=== PATIENT | male | born 1950 | race Caucasian/White ===

== ENCOUNTER 2017-03-31 13:41 | Observation (INO) ==
[2017-03-31] MEDS ORDERED: Aspirin 81 MG TAB.CHEW PO STA (14:02)
--- NOTE | 2017-03-31 14:09 | Emergency Department Note ---
Disposition Clinical Impression: Abnormal stress test Chest pain Qualifiers: Chest pain type: unspecified Qualified Code(s): R07.9 - Chest pain, unspecified Disposition: Admitted As Inpatient Condition: Good Instructions: Chest Pain (ED) Referrals: NO,PCP [Non-Partnered Physician] - Forms: ED Satisfaction Letter Time of Disposition: 15:34 Chest Pain HPI - General Chief Complaint: ED Chest Pain Stated Complaint: Chest Pain Time Seen by Provider: 03/31/17 13:55 Source: patient, family Mode of arrival: ambulatory Limitations: no limitations Vital Signs Reviewed: Yes Nursing Notes Reviewed: Yes - History of Present Illness HPI Narrative: 66-year-old male history of CAD s/p 2 stents (most recent 2006), HTN, HLD, former smoker presents with chest pain as he was instructed from OSH to present here. Patient reports midsternal chest pressure and heaviness around 11 o' clock with reported shortness of breath. Denies any diaphoresis, lightheadedness, nausea or vomiting. He reportedly was coming home from a nuclear stress tests and informs me that it was reported abnormal. His flatbed company driver is Dr. Cedeno. Patient reports yesterday being admitted to [facility] for chest pain and a nuclear stress test was non-diagnostic and he had to complete it today over at [facility]. Patient has taken 2 baby aspirins today at 9 o'clock. He has not taken any nitro for it. While he was in the hospital but nitro did help with his pain. He denies any recent fever, illness , cough or abdominal pain. Denies any blood or black tarry stools. We are awaiting results of the stress test the faxed. Patient is hypertensive right now 183 systolic. He just took his losartan around 10 o'clock as he was NPO prior to his stress test. Pt complaint: chest pain Severity scale (1-10): 6 - Related Data Home Medications Medication Instructions Recorded Confirmed Aspirin Enteric Coated [Aspirin EC] 162 mg PO DAILY 03/31/17 03/31/17 Dexlansoprazole [Dexilant] 60 mg PO DAILY 03/31/17 03/31/17 Ezetimibe [Zetia] 10 mg PO DAILY 03/31/17 03/31/17 Folic Acid 2 mg PO DAILY 03/31/17 03/31/17 Hydroxychloroquine [Plaquenuil] 400 mg PO DAILY 03/31/17 03/31/17 Methotrexate [Otrexup] 20 mg PO SAMPSON 03/31/17 03/31/17 Metoprolol XL (24 HR) Succ [Toprol 50 mg PO DAILY 03/31/17 03/31/17 Xl] Nitroglycerin [Nitroglycerin] 0.4 mg PO Q5M PRN 03/31/17 03/31/17 Olmesartan Medoxomil [Olmesartan 40 mg PO DAILY 03/31/17 03/31/17 Medoxomil] Oxycodone HCl/Acetaminophen 1 each PO Q6H PRN 03/31/17 03/31/17 [Percocet 10-325 mg Tablet] Rosuvastatin Calcium [Rosuvastatin 20 mg PO HS 03/31/17 03/31/17 Calcium] Zolpidem [Ambien] 10 mg PO HS PRN 03/31/17 03/31/17 amLODIPine [Norvasc] 5 mg PO DAILY 03/31/17 03/31/17 Allergies Allergy/AdvReac Type Severity Reaction Status Date / Time Penicillins [PCN] Allergy Hives Verified 10/23/15 08:36 All systems ED: reviewed and negative except as stated. Constitutional: Denies: fever, chills ENT ED: Denies: ear pain Cardiovascular: Reports: chest pain. Denies: palpitations Respiratory: Reports: dyspnea. Denies: cough Gastrointestinal: Denies: abdominal pain, nausea, vomiting, diarrhea Genitourinary: Denies: urgency, dysuria Musculoskeletal: Denies: back pain, neck pain Integumentary: Denies: rash, abrasion Neurological: Denies: headache Chest Pain PMH - Past Medical History Medical history: Reports: arthritis, hyperlipidemia, hypertension - Social History Smoking Status: Former smoker Alcohol use: Reports: none Drug use: Reports: none Physical Exam - General Limitations: no limitations General appearance: alert, in no apparent distress - Head Head exam: atraumatic, normocephalic, normal inspection - Eye Eye exam: Present: normal appearance, PERRL, EOMI. Absent: scleral icterus - ENT ENT exam: normal exam, normal oropharynx, mucous membranes moist - Neck Neck exam: Present: normal inspection, full ROM, trachea midline - Chest Chest inspection: Present: normal inspection, symmetric chest wall rise. Absent : tenderness (Not reproducible) - Respiratory Respiratory exam: Present: normal lung sounds bilaterally. Absent: respiratory distress - Cardiovascular Cardiovascular exam: Present: regular rate, normal rhythm, normal heart sounds - Abdominal Exam Abdominal exam: Present: soft, Non-Tender, normal bowel sounds. Absent: tenderness, distention, guarding, rebound, rigidity - Extremities Exam Extremities exam: Present: normal inspection, full ROM, normal capillary refill. Absent: tenderness, pedal edema, calf tenderness - Back Exam Back exam: Present: normal inspection, full ROM. Absent: tenderness - Neurological Exam Neurological exam: Present: alert, oriented X3 - Psychiatric Psychiatric exam: Present: normal affect, normal mood - Skin Skin exam: Present: warm, dry, intact, normal color Course Course Narrative: 66-year-old male history of CAD ([place] x4 and stents x2) presents with chest pain and reportedly abnormal stress tests. Patient is initially hypertensive as he has just recently taken his antihypertensive medication. He otherwise appears in no acute distress. He is not diaphoretic. Heart's regular rate and rhythm. Chest is nontender on palpation. Are clear auscultation bilaterally. Exam is otherwise unremarkable. EKG does not show any acute ischemic changes. Chest pain workup initiated. We will give him 162 mg aspirin and a nitro trial. Awaiting his stress test results to be faxed. - Reevaluation(s) Reevaluation #1: Labs are unremarkable. Troponin 0. No acute changes on EKG. HEART score 4. The perfusion portion of stress test faxed and received, reveals images concerning for small region of mildly severe partially fixed partially reversible perfusion involving the distal anterior wall, apex and distal inferior wall concerning for mildly severe stress-induced ischemia. Pain diminished to 1 after 2 nitro and 162 mg of aspirin given. Impression is chest pain and abnormal stress test. Time: 15:27 - Consultations Consultation #1: Spoke to flatbed company driver Dr. Cedeno, recommend admission to hospital due to recurrent chest pain. Unfortunately the perfusion portion of the stress test is not available at this time. Await for results and determine further management. Time: 15:20 Consultation #2: Spoke with on-call hospitalist Dr. Lopes, ok to admit for chest pain and abnormal stress test. No further orders at this time Time: 16:25 Vital Signs Temperature 98.3 F 03/31/17 13:43 Pulse Rate 78 03/31/17 13:43 Respiratory Rate 18 03/31/17 13:43 Blood Pressure 164/110 03/31/17 13:43 O2 Sat by Pulse Oximetry 97 03/31/17 13:43 Temperature 98.3 F 03/31/17 13:43 Pulse Rate 57 03/31/17 15:46 Respiratory Rate 18 03/31/17 15:46 Blood Pressure 124/81 03/31/17 15:46 O2 Sat by Pulse Oximetry 96 03/31/17 15:46 Oxygen Delivery Oxygen Delivery Room Air Chest Pain - Medical Records Medical records reviewed: Yes I reviewed the patient's medical records. - Lab Data Lab results reviewed: Yes I reviewed the patient's lab results. Result diagrams: 03/31/17 14:37 03/31/17 14:37 Lab Results 03/31/17 03/31/17 03/31/17 Range/Units 14:37 14:37 14:37 WBC 6.1 (4.3-11.1) K/mcL RBC 4.59 (4.19-5.50) M/mcL Hgb 14.3 (12.9-16.9) g/dL Hct 41.3 (37.5-50.1) % MCV 90.0 (83.0-100.0) fL MCH 31.2 (28.0-33.3) pg MCHC 34.6 (31.6-35.5) g/dL RDW 13.0 (11.5-14.5) % Plt Count 170 (140-400) K/mcL MPV 10.2 (9.4-12.4) fL Immature Gran % 1.0 (0-4) % Seg Neutrophils % 68.5 % Lymphocytes % 22.1 % Monocytes % 6.4 % Eosinophils % 1.2 % Basophils % 0.8 % Neutrophils # 4.2 (1.6-8.9) K/mcL Lymphocytes # 1.3 (0.6-4.6) K/mcL Monocytes # 0.4 (0.0-1.3) K/mcL Eosinophils # 0.1 (0.0-0.6) K/mcL Basophils # 0.1 (0.0-0.2) K/mcL PT 11.2 (9.4-12.1) Seconds INR 1.0 APTT 29.6 (26.0-36.0) Seconds Sodium (136-145) mEq/L Potassium (3.5-4.5) mEq/L Chloride (98-109) mEq/L Carbon Dioxide (19-29) mEq/L BUN (8-26) mg/dL Creatinine (0.72-1.25) mg/dL Est GFR ( Amer) (> 60) Est GFR (Non-Af Amer) (> 60) BUN/Creatinine Ratio (6-26) Glucose (70-99) mg/dL Calculated Osmolality (280-300) Calcium (8.6-10.8) mg/dL Troponin I (0-0.03) ng/mL B-Natriuretic Peptide 33 (0-100) pg/mL 03/31/17 03/31/17 Range/Units 14:37 14:37 WBC (4.3-11.1) K/mcL RBC (4.19-5.50) M/mcL Hgb (12.9-16.9) g/dL Hct (37.5-50.1) % MCV (83.0-100.0) fL MCH (28.0-33.3) pg MCHC (31.6-35.5) g/dL RDW (11.5-14.5) % Plt Count (140-400) K/mcL MPV (9.4-12.4) fL Immature Gran % (0-4) % Seg Neutrophils % % Lymphocytes % % Monocytes % % Eosinophils % % Basophils % % Neutrophils # (1.6-8.9) K/mcL Lymphocytes # (0.6-4.6) K/mcL Monocytes # (0.0-1.3) K/mcL Eosinophils # (0.0-0.6) K/mcL Basophils # (0.0-0.2) K/mcL PT (9.4-12.1) Seconds INR APTT (26.0-36.0) Seconds Sodium 143 (136-145) mEq/L Potassium 3.9 (3.5-4.5) mEq/L Chloride 108 (98-109) mEq/L Carbon Dioxide 26 (19-29) mEq/L BUN 16 (8-26) mg/dL Creatinine 0.87 (0.72-1.25) mg/dL Est GFR ( Amer) > 60 (> 60) Est GFR (Non-Af Amer) > 60 (> 60) BUN/Creatinine Ratio 18 (6-26) Glucose 100 H (70-99) mg/dL Calculated Osmolality 297 (280-300) Calcium 9.6 (8.6-10.8) mg/dL Troponin I 0.00 (0-0.03) ng/mL B-Natriuretic Peptide (0-100) pg/mL - Radiology Data Radiology results reviewed: Yes I reviewed the patient's radiology results. Chest X-Ray 03/31/17 13:55 IMPRESSION: No acute cardiopulmonary disease. D/ / 03/31/2017 14:51:16 Luis Arroyo MD / Nia Avendaño Interpreting Provider: Luis Arroyo MD - EKG Data EKG attestation: Yes I reviewed and interpreted this EKG. EKG results narrative: EKG performed 1351 normal sinus rhythm with occasional PVC 68 bpm, good R-R wave progression, normal axis, there are no ST elevations or depressions, no T- wave inversions. Intervals are within normal limits HI interval 155 QRS 102 QT QTC 407 424. No acute ischemic changes. Heart Score - Score History: Moderately Suspicious EKG: Normal Age: 45-65 Risk Factors: Equal/Greater than 3 risk factor or history of atherosclerotic disease Troponin: Less than normal limit HEART Score Total: 4
--- NOTE | 2017-03-31 14:12 | Emergency Department Note ---
Disposition Clinical Impression: Chest pain, Abnormal stress test Disposition: Admitted As Inpatient Condition: Good General Adult HPI - General Chief complaint: ED Chest Pain Stated complaint: Chest Pain Time Seen by Provider: 03/31/17 13:55 Source: patient, family Mode of arrival: ambulatory Limitations: no limitations - History of Present Illness Pain Scale: 6 - Related Data Home Medications Medication Instructions Recorded Confirmed Aspirin Enteric Coated [Aspirin EC] 162 mg PO DAILY 03/31/17 03/31/17 Dexlansoprazole [Dexilant] 60 mg PO DAILY 03/31/17 03/31/17 Ezetimibe [Zetia] 10 mg PO DAILY 03/31/17 03/31/17 Folic Acid 2 mg PO DAILY 03/31/17 03/31/17 Hydroxychloroquine [Plaquenuil] 400 mg PO DAILY 03/31/17 03/31/17 Methotrexate [Otrexup] 20 mg PO SAMPSON 03/31/17 03/31/17 Metoprolol XL (24 HR) Succ [Toprol 50 mg PO DAILY 03/31/17 03/31/17 Xl] Nitroglycerin [Nitroglycerin] 0.4 mg PO Q5M PRN 03/31/17 03/31/17 Olmesartan Medoxomil [Olmesartan 40 mg PO DAILY 03/31/17 03/31/17 Medoxomil] Oxycodone HCl/Acetaminophen 1 each PO Q6H PRN 03/31/17 03/31/17 [Percocet 10-325 mg Tablet] Rosuvastatin Calcium [Rosuvastatin 20 mg PO HS 03/31/17 03/31/17 Calcium] Zolpidem [Ambien] 10 mg PO HS PRN 03/31/17 03/31/17 amLODIPine [Norvasc] 5 mg PO DAILY 03/31/17 03/31/17 Allergies Allergy/AdvReac Type Severity Reaction Status Date / Time Penicillins [PCN] Allergy Hives Verified 10/23/15 08:36 Constitutional: Denies: fever, chills ENT ED: Denies: ear pain Cardiovascular: Reports: chest pain. Denies: palpitations Respiratory: Reports: dyspnea. Denies: cough Gastrointestinal: Denies: abdominal pain, nausea, vomiting, diarrhea Genitourinary: Denies: urgency, dysuria Musculoskeletal: Denies: back pain, neck pain Integumentary: Denies: rash, abrasion Neurological: Denies: headache Past Medical History - Past Medical History Medical history: Reports: arthritis, hyperlipidemia, hypertension - Social History Smoking Status: Former smoker Smokeless Tobacco Status: No Alcohol use: Reports: none Drug use: Reports: none Physical Exam - General Limitations: no limitations General appearance: alert, in no apparent distress Course Vital Signs Temperature 98.3 F 03/31/17 13:43 Pulse Rate 78 03/31/17 13:43 Respiratory Rate 18 03/31/17 13:43 Blood Pressure 164/110 03/31/17 13:43 O2 Sat by Pulse Oximetry 97 03/31/17 13:43 Temperature 97.7 F 03/31/17 17:23 Pulse Rate 58 03/31/17 17:23 Respiratory Rate 16 03/31/17 17:23 Blood Pressure 159/98 03/31/17 17:23 O2 Sat by Pulse Oximetry 99 03/31/17 17:23 Oxygen Delivery Oxygen Delivery Room Air Medical Decision Making - Lab Data Result diagrams: 03/31/17 14:37 03/31/17 14:37 Lab Results 03/31/17 03/31/17 03/31/17 Range/Units 14:37 14:37 14:37 WBC 6.1 (4.3-11.1) K/mcL RBC 4.59 (4.19-5.50) M/mcL Hgb 14.3 (12.9-16.9) g/dL Hct 41.3 (37.5-50.1) % MCV 90.0 (83.0-100.0) fL MCH 31.2 (28.0-33.3) pg MCHC 34.6 (31.6-35.5) g/dL RDW 13.0 (11.5-14.5) % Plt Count 170 (140-400) K/mcL MPV 10.2 (9.4-12.4) fL Immature Gran % 1.0 (0-4) % Seg Neutrophils % 68.5 % Lymphocytes % 22.1 % Monocytes % 6.4 % Eosinophils % 1.2 % Basophils % 0.8 % Neutrophils # 4.2 (1.6-8.9) K/mcL Lymphocytes # 1.3 (0.6-4.6) K/mcL Monocytes # 0.4 (0.0-1.3) K/mcL Eosinophils # 0.1 (0.0-0.6) K/mcL Basophils # 0.1 (0.0-0.2) K/mcL PT 11.2 (9.4-12.1) Seconds INR 1.0 APTT 29.6 (26.0-36.0) Seconds Sodium (136-145) mEq/L Potassium (3.5-4.5) mEq/L Chloride (98-109) mEq/L Carbon Dioxide (19-29) mEq/L BUN (8-26) mg/dL Creatinine (0.72-1.25) mg/dL Est GFR ( Amer) (> 60) Est GFR (Non-Af Amer) (> 60) BUN/Creatinine Ratio (6-26) Glucose (70-99) mg/dL Calculated Osmolality (280-300) Calcium (8.6-10.8) mg/dL Troponin I (0-0.03) ng/mL B-Natriuretic Peptide 33 (0-100) pg/mL 03/31/17 03/31/17 Range/Units 14:37 14:37 WBC (4.3-11.1) K/mcL RBC (4.19-5.50) M/mcL Hgb (12.9-16.9) g/dL Hct (37.5-50.1) % MCV (83.0-100.0) fL MCH (28.0-33.3) pg MCHC (31.6-35.5) g/dL RDW (11.5-14.5) % Plt Count (140-400) K/mcL MPV (9.4-12.4) fL Immature Gran % (0-4) % Seg Neutrophils % % Lymphocytes % % Monocytes % % Eosinophils % % Basophils % % Neutrophils # (1.6-8.9) K/mcL Lymphocytes # (0.6-4.6) K/mcL Monocytes # (0.0-1.3) K/mcL Eosinophils # (0.0-0.6) K/mcL Basophils # (0.0-0.2) K/mcL PT (9.4-12.1) Seconds INR APTT (26.0-36.0) Seconds Sodium 143 (136-145) mEq/L Potassium 3.9 (3.5-4.5) mEq/L Chloride 108 (98-109) mEq/L Carbon Dioxide 26 (19-29) mEq/L BUN 16 (8-26) mg/dL Creatinine 0.87 (0.72-1.25) mg/dL Est GFR ( Amer) > 60 (> 60) Est GFR (Non-Af Amer) > 60 (> 60) BUN/Creatinine Ratio 18 (6-26) Glucose 100 H (70-99) mg/dL Calculated Osmolality 297 (280-300) Calcium 9.6 (8.6-10.8) mg/dL Troponin I 0.00 (0-0.03) ng/mL B-Natriuretic Peptide (0-100) pg/mL Attestation Statement - Attestation Attestation: I examined this patient and my medical decision-making was reviewed with the REFRACTORY BRICKLAYER/PA/Advanced Practice Nurse/Resident Physician. I agree with the documented findings, disposition and treatment plan as described except to the extent set forth below. Face to face time provided Patient instructed to present to the emergency department due to an abnormal stress test that was recently performed at an outside facility. He appears in no acute distress on exam. EKG reviewed by me 14:36: Stress test results. The transcribed report of the [facility] ECG does not indicate any acute abnormality (perfusion results unavailable). We will discuss with the on-call hospital product specialist
[2017-03-31] MEDS: Nitroglycerin 0.4 MG TAB.SUBL SL PRN ×2 (14:37→14:44)
[2017-03-31 14:46] LABS: Basophils # 0.1 K/mcL (0.0-0.2); Basophils % 0.8 %; Eosinophils # 0.1 K/mcL (0.0-0.6); Eosinophils % 1.2 %; Hematocrit 41.3 % (37.5-50.1); Hemoglobin 14.3 g/dL (12.9-16.9); Lymphocytes # 1.3 K/mcL (0.6-4.6); Lymphocytes % 22.1 %; Mean Corpuscular HGB Conc 34.6 g/dL (31.6-35.5); Mean Corpuscular Hemoglobin 31.2 pg (28.0-33.3); Mean Platelet Volume 10.2 fL (9.4-12.4); Monocytes # 0.4 K/mcL (0.0-1.3); Monocytes % 6.4 %; Neutrophils # 4.2 K/mcL (1.6-8.9); Platelet Count 170 K/mcL (140-400); Red Blood Count 4.59 M/mcL (4.19-5.50); Segmented Neutrophils % 68.5 %
[2017-03-31 14:53] LABS: Prothrombin Time 11.2 Seconds (9.4-12.1)
[2017-03-31 14:56] LABS: Activated Partial Thrombo Time 29.6 Seconds (26.0-36.0)
[2017-03-31 14:57] LABS: BUN/Creatinine Ratio 18 (6-26); Blood Urea Nitrogen 16 mg/dL (8-26); Calcium 9.6 mg/dL (8.6-10.8); Carbon Dioxide 26 mEq/L (19-29); Chloride 108 mEq/L (98-109); Glucose 100 mg/dL (70-99); Osmolality,Calculated 297 (280-300); Potassium 3.9 mEq/L (3.5-4.5); Sodium 143 mEq/L (136-145); eGFR For African Americans > 60 (> 60); eGFR For Non-African Americans > 60 (> 60)
[2017-03-31] MEDS ORDERED: Naloxone 0.4 MG/ML INJ IVP PRN (17:17)
[2017-03-31] MEDS ORDERED: Ondansetron 4 MG/2 ML VIAL IVP PRN (17:17)
[2017-03-31] MEDS ORDERED: Acetaminophen 325 MG TABLET PO PRN (17:17)
[2017-03-31] MEDS ORDERED: *HR* OxyCODONE/APAP 10/325 TABLET PO PRN (17:19)
[2017-03-31] MEDS ORDERED: Nitroglycerin 0.4 MG TAB.SUBL SL PRN (17:19)
--- NOTE | 2017-03-31 17:36 | Internal Med History&Physical ---
<Jhon Jeter - Last Filed: 03/31/17 17:56> Date of Encounter: 03/31/17 Time of Encounter: 17:34 Assessment and Plan (1) Abnormal stress test Current visit: Yes Status: Acute Patient presents from outside hospital with an abnormal stress test. Stress test reviewed showed small region of mildly severe partially fixed/partially reversible profusion involving the distal anterior wall, apex, and distal inferior wall. EF is 57%. EKG performed years unremarkable for ischemic changes, troponin performed here was negative. Patient is chest pain-free at this time. Cardiology has been consulted and patient will likely have LHC tomorrow. Patient been made nothing by mouth benign. (2) Coronary artery disease Current visit: Yes Status: Acute With abnormal stress test and plan for LHC as above. Continue aspirin, statin, beta lissette. Sublingual nitroglycerin when necessary for chest pain. Qualifiers: Coronary Disease-Associated Artery/Lesion type: [place] artery [place] vs. transplanted heart: [place] heart Associated angina: without angina Qualified Code(s): I25.10 - Atherosclerotic heart disease of [place] coronary artery without angina pectoris (3) Rheumatoid arthritis Current visit: Yes Status: Acute Stable. Continue Plaquenil, methotrexate, folic acid. Qualifiers: Rheumatoid arthritis location: unspecified site Rheumatoid factor presence : unspecified presence Qualified Code(s): M06.9 - Rheumatoid arthritis, unspecified (4) Chronic back pain Current visit: Yes Status: Acute Stable. Continue home Percocet. Qualifiers: Back pain location: low back pain Back pain laterality: midline Sciatica presence: unspecified whether sciatica present Qualified Code(s): M54.5 - Low back pain; G89.29 - Other chronic pain (5) Hyperlipidemia Current visit: Yes Status: Acute Will check lipid panel. Continue statin. Qualifiers: Hyperlipidemia type: pure hypercholesterolemia Qualified Code(s): E78.00 - Pure hypercholesterolemia, unspecified; E78.0 - Pure hypercholesterolemia (6) Hypertension Current visit: Yes Status: Acute Blood pressure mildly elevated. Continue home medication and continue to monitor. Qualifiers: Hypertension type: essential hypertension Qualified Code(s): I10 - Essential (primary) hypertension (7) GERD (gastroesophageal reflux disease) Current visit: Yes Status: Acute Continue PPI. Qualifiers: Esophagitis presence: esophagitis presence not specified Qualified Code(s) : K21.9 - Gastro-esophageal reflux disease without esophagitis (8) DVT prophylaxis Current visit: Yes Status: Acute Heparin 5000 units subcutaneous twice a day. Internal Medicine - H&P: HPI Chief complaint: Chest pain Admitted From: Emergency Dept Plans for Post Hospital Care: Home History of present illness: Mr. Morales is a 66 year old male with history of coronary artery disease, rheumatoid arthritis who presents with chest pain. Patient states that he was recently admitted at [facility] for chest pain. Patient underwent cardiac stress testing at that time and patient states that there is an error reporting so they asked him to come back this morning for repeat stress test which he did. Patient states that he was on his way home and was called and told that his stress test was abnormal and that they recommend he go to the emergency department. Patient then reported to our emergency department. He did state that he had some chest pain and her emergency department which was relieved with nitroglycerin. He reports his chest pain feels like a heaviness in the center of the chest. He states his chest pain does not radiate. He reports associated shortness of breath and occasional mild dizziness. He denies diaphoresis, nausea, vomiting, syncope, palpitations. Past Med Surg Social Fam HX - Past Medical History Medical history: arthritis, hyperlipidemia, hypertension - Past Surgical History Surgical History: angioplasty/stent, appendectomy, cholecystectomy - Social History Smoking Status: Former smoker Smokeless Tobacco Status: No Alcohol use: none Drug use: none - Family History Father Living Status: Hx Family Cardiac Disorders: Yes Hx Family Cancer: Yes Mother Hx Family Cardiac Disorders: Yes Internal Medicine - H&P: Meds Aspirin Enteric Coated [Aspirin EC] 162 mg PO DAILY 03/31/17 [History] Dexlansoprazole [Dexilant] 60 mg PO DAILY 03/31/17 [History] Ezetimibe [Zetia] 10 mg PO DAILY 03/31/17 [History] Folic Acid 2 mg PO DAILY 03/31/17 [History] Hydroxychloroquine [Plaquenuil] 400 mg PO DAILY 03/31/17 [History] Methotrexate [Otrexup] 20 mg PO SAMPSON 03/31/17 [History] Metoprolol XL (24 HR) Succ [Toprol Xl] 50 mg PO DAILY 03/31/17 [History] Nitroglycerin [Nitroglycerin] 0.4 mg PO Q5M PRN 03/31/17 [History] Olmesartan Medoxomil [Olmesartan Medoxomil] 40 mg PO DAILY 03/31/17 [History] Oxycodone HCl/Acetaminophen [Percocet 10-325 mg Tablet] 1 each PO Q6H PRN [History] Rosuvastatin Calcium [Rosuvastatin Calcium] 20 mg PO HS 03/31/17 [History] Zolpidem [Ambien] 10 mg PO HS PRN 03/31/17 [History] amLODIPine [Norvasc] 5 mg PO DAILY 03/31/17 [History] Allergies Penicillins [PCN] Allergy (Verified 10/23/15 08:36) Hives All Systems PM: A 10-system review of systems was performed and is negative for pertinent findings except as documented above in the HPI. - Constitutional Constitutional: no chills, no fever(s) - EENT Eyes: no change in vision Nose, mouth and throat: no sinus pain, no sinus pressure - Cardiovascular Cardiovascular ROS IM: chest pain, dyspnea, lightheadedness, no diaphoresis, no edema, no palpitations, no syncope - Respiratory Respiratory: dyspnea, no cough, no hemoptysis, no dyspnea on exertion, no wheezing, no chest congestion, no excessive phlegm production, no change in phlegm color - Gastrointestinal Gastrointestinal: no abdominal pain, no diarrhea, no nausea, no vomiting - Genitourinary Genitourinary ROS male: no dysuria, no urinary frequency, no urinary hesitancy - Musculoskeletal Musculoskeletal ROS IM: back pain (chronic), no numbness, no tingling - Integumentary Integumentary IM: no erythema, no new lesions, no rash - Neurological Neurological ROS: dizziness, no numbness, no tingling - Psychiatric Psychiatric: no anxiety, no depression - Hematologic/Lymphatic Hematologic/Lymphatic: no easy bleeding, no easy bruising - Constitutional Vitals: Temp Pulse Resp BP Pulse Ox 98.3 F 57 16 155/98 96 03/31/17 13:43 03/31/17 15:46 03/31/17 16:51 03/31/17 16:51 03/31/17 15:46 General appearance: Present: A&O X 3, pleasant, no acute distress - Head Head exam: Present: atraumatic, normal inspection, normocephalic - Eye Eye exam: Present: EOMI, PERRL - ENT ENT exam: Present: mucous membranes moist - Respiratory Respiratory exam: Present: CTAB. Absent: rales, rhonchi, wheezes - Cardiovascular Cardiovascular exam: Present: RRR. Absent: gallop, irregular rhythm, rubs, systolic murmur, tachycardia - GI/Abdominal GI/Abdominal exam: Present: normal bowel sounds, soft. Absent: distended, tenderness - Extremities Exam Extremities exam: Present: warm. Absent: cyanotic, pedal edema, tenderness - Neurological Exam Neurological exam: Present: alert, CN II-XII intact, oriented X3, no focal deficits - Psychiatric Psychiatric exam: Present: normal affect, normal mood - Skin Skin exam: Present: dry, intact, warm Internal Med - H&P Results - Labs CBC & Chem 7: 03/31/17 14:37 03/31/17 14:37 <Luis Fernando Monroy P - Last Filed: 03/31/17 19:34> Date of Encounter: 03/31/17 Internal Medicine - H&P: HPI History of present illness: Mr. Morales is a 66 year old male All Systems PM: A 10-system review of systems was performed and is negative for pertinent findings except as documented above in the HPI. - Constitutional Vitals: Temp Pulse Resp BP Pulse Ox 97.7 F 58 16 159/98 99 03/31/17 17:23 03/31/17 17:23 03/31/17 17:23 03/31/17 17:23 03/31/17 17:23 Internal Med - H&P Results - Labs CBC & Chem 7: 03/31/17 14:37 03/31/17 14:37 - Attending Attestation I examined this patient and my medical decision-making was reviewed with the UNIT AIDE/PA/Advanced Practice Nurse/Resident Physician. I agree with the documented findings, disposition and treatment plan as described except to the extent set forth below. will follow cardiology recommendations
[2017-03-31] MEDS: *HR* Heparin 5,000 UNIT/ML VIAL SQ SCH (17:59)
[2017-04-01] MEDS: *HR* Heparin 5,000 UNIT/ML VIAL SQ SCH ×2 (05:35→17:24)
[2017-04-01 06:29] LABS: Basophils % 0.7 %; Eosinophils # 0.1 K/mcL (0.0-0.6); Eosinophils % 1.1 %; Hematocrit 39.4 % (37.5-50.1); Hemoglobin 13.6 g/dL (12.9-16.9); Immature Granulocytes % 0.8 % (0-4); Lymphocytes # 1.5 K/mcL (0.6-4.6); Lymphocytes % 23.7 %; Mean Corpuscular HGB Conc 34.5 g/dL (31.6-35.5); Mean Corpuscular Hemoglobin 31.1 pg (28.0-33.3); Mean Corpuscular Volume 90.2 fL (83.0-100.0); Mean Platelet Volume 10.5 fL (9.4-12.4); Monocytes # 0.5 K/mcL (0.0-1.3); Monocytes % 7.5 %; Neutrophils # 4.1 K/mcL (1.6-8.9); Platelet Count 160 K/mcL (140-400); Red Blood Count 4.37 M/mcL (4.19-5.50); Segmented Neutrophils % 66.2 %
[2017-04-01 06:32] LABS: BUN/Creatinine Ratio 14 (6-26); Blood Urea Nitrogen 13 mg/dL (8-26); Calcium 8.8 mg/dL (8.6-10.8); Carbon Dioxide 26 mEq/L (19-29); Chloride 109 mEq/L (98-109); Cholesterol 128 mg/dL (< 200); Glucose 107 mg/dL (70-99); HDL Cholesterol 42 mg/dL (40-59); LDL Cholesterol,Calculated 59 mg/dL (0-99); Magnesium 2.1 mg/dL (1.6-2.6); Osmolality,Calculated 293 (280-300); Potassium 4.2 mEq/L (3.5-4.5); Sodium 141 mEq/L (136-145); Triglycerides 134 mg/dL (< 150); eGFR For African Americans > 60 (> 60); eGFR For Non-African Americans > 60 (> 60)
[2017-04-01] MEDS: Valsartan 160 MG TABLET PO SCH (08:21)
[2017-04-01] MEDS: Folic Acid 1 MG TABLET PO SCH (08:22)
[2017-04-01] MEDS: amLODIPine 5 MG TABLET PO SCH (08:22)
[2017-04-01] MEDS: Metoprolol XL (24 HR) Succ 50 MG TAB.ER.24H PO SCH (08:22)
[2017-04-01] MEDS ORDERED: Aspirin Enteric Coated 81 MG Tablet PO SCH (09:00)
--- NOTE | 2017-04-01 09:17 | Cardiology Consult Note ---
Date of Encounter: 04/01/17 Time of Encounter: 08:45 Assessment and Plan (1) Chest pain Current Visit: Yes Status: Acute Presents with typical chest pain symptoms--states similar to prior [place]. Troponin negative, ECG without ischemic ECG changes. Chest pain free upon exam. Recent abnormal stress test at outside Hospital--mildly severe perfusion defect involving the distal anterior wall, apex, and distal inferior wall, gated EF=57% . Hx of prior PCI in 2006. Recommend [facility] with possible PCI; alternatives, risks, and benefits discussed, he is agreeable to proceed. Continue asa, statin, and betablocker. Further recommendations to follow. Qualifiers: Chest pain type: chest pain due to myocardial ischemia Ischemic chest pain type: stable angina pectoris Qualified Code(s): I20.8 - Other forms of angina pectoris (2) Abnormal stress test Current Visit: Yes Status: Acute Plan as stated above. Discussion w patient/family: The assessment and plan as outlined above was discussed with the patient and/or family members who expressed understanding and agreement. All questions were answered. Thank you for involving us in the care of your patient. Please call with any questions. The patient will be discussed and reviewed with Dr. Cedeno; changes to be made accordingly. History of Present Illness Consult date: 03/31/17 Requesting physician: Mert Payton Consult reason: Abnormal stress test Chief complaint: Chest pain History of present illness: Mr. Morales is a 66 year old male with PMHx significant for CAD s/p PCI (2006), HTN , HLD, RA, and smokeless tobacco use who initially presented to [facility] with 1 week history of worsening mid-sternal, non-radiating, chest pain. He reports the pain awoke him from sleep on Thursday morning which prompted ED evaluation. Associated symptoms include shortness of breath; symptoms typically last for a few minutes and then resolve. Non-exercise stress test completed at [place] was found to be abnormal--at that point the patient was discharged but then contacted at home and was instructed to be evaluated at [facility] ED. Prior CV testing: Regadenoson nuclear 10/23/15: perfusion imaging negative for ischemia or infarct, gated EF=67%, normal hemodynamic response Non exercise nuclear 03/30/17 ([place]): imaging concerning for a small region of mildly severe partially fixed/partially reversible perfusion involving the distal anterior wall, apex, and distal inferior wall concerning for mildly severe stress-induced ischemia, gated LVEF=57% Past Med Surg Social Fam HX - Past Medical History Attestation: Yes The following information was validated with the patient. Source: patient, old records reviewed, obtained from family Medical history: arthritis, hyperlipidemia, hypertension, RA - Past Surgical History Surgical History: angioplasty/stent, appendectomy, cholecystectomy - Social History Smoking Status: Former smoker Packs per day: 2 Smokeless Tobacco Status: Yes (1 pack chewing tobacco) Alcohol use: none Drug use: none - Family History Father Living Status: Hx Family Cardiac Disorders: Yes Hx Family Cancer: Yes Mother Living Status: Age at : 62 Cause of : [place] Hx Family Cardiac Disorders: Yes Hx Family Respiratory Disorders: No Hx Family Cancer: No Hx Family Endocrine Disorder: Yes Hx Family Medical Disorders: Yes Medications and Allergies Aspirin Enteric Coated [Aspirin EC] 162 mg PO DAILY 03/31/17 [History] Dexlansoprazole [Dexilant] 60 mg PO DAILY 03/31/17 [History] Ezetimibe [Zetia] 10 mg PO DAILY 03/31/17 [History] Folic Acid 2 mg PO DAILY 03/31/17 [History] Hydroxychloroquine [Plaquenuil] 400 mg PO DAILY 03/31/17 [History] Methotrexate [Otrexup] 20 mg PO SAMPSON 03/31/17 [History] Metoprolol XL (24 HR) Succ [Toprol Xl] 50 mg PO DAILY 03/31/17 [History] Nitroglycerin [Nitroglycerin] 0.4 mg PO Q5M PRN 03/31/17 [History] Olmesartan Medoxomil [Olmesartan Medoxomil] 40 mg PO DAILY 03/31/17 [History] Oxycodone HCl/Acetaminophen [Percocet 10-325 mg Tablet] 1 each PO Q6H PRN [History] Rosuvastatin Calcium [Rosuvastatin Calcium] 20 mg PO HS 03/31/17 [History] Zolpidem [Ambien] 10 mg PO HS PRN 03/31/17 [History] amLODIPine [Norvasc] 5 mg PO DAILY 03/31/17 [History] Allergies Penicillins [PCN] Allergy (Verified 10/23/15 08:36) Hives All Systems Review: A 10-system review of systems was performed and is negative for pertinent findings except as documented above in the HPI. - Cardiovascular Cardiovascular: as per HPI Physical Examination Vital Signs, Last 4 Hours Pulse Resp BP Pulse Ox 04/01/17 07:00 57 18 127/84 96 General: Conversant, No Apparent Distress HEENT: Atraumatic, Normocephaly, Mucus Membranes Moist Cardiac: Reg Rate and Rhythm, Normal S1 and S2 Lungs: Normal Breath Sounds, No Wheeze, Rales, Rhonchi Neuro: Alert and responsive Abdomen: Soft, Non-Tender Skin: No rashes noted on visualized skin Musculoskeletal: No Chest Wall Tenderness Extremities: No Edema, Normal Pulses Results 04/01/17 05:54 04/01/17 05:54 Lab Results 04/01/17 04/01/17 05:54 05:54 WBC 6.1 Hgb 13.6 Hct 39.4 Plt Count 160 Sodium 141 Potassium 4.2 Chloride 109 Carbon Dioxide 26 BUN 13 Creatinine 0.94 Glucose 107 H Calcium 8.8 Magnesium 2.1 - Imaging and Cardiology Stress Test: report reviewed Other Results: 12 hour tele: avg HR=58 SR with PACs. Artifact present. - EKG Interpretation EKG results cardiology: personally reviewed Consult Discharge Plan - Plan Referrals: Sebastian Stockton MD [Primary Care Provider] - 04/09/17 2:15 pm
--- NOTE | 2017-04-01 11:17 | Pre-Sedation Evaluation ---
Pre-sedation evaluation - Pre-sedation checklist Date of procedure: 04/01/17 Procedure: Left Heart Catheterization Recent Vitals: Last Vital Signs Temp 97.9 F 04/01/17 04:37 Pulse 57 04/01/17 07:00 Resp 18 04/01/17 07:00 BP 127/84 04/01/17 07:00 Pulse Ox 96 04/01/17 07:00 H&P (including ROS) documented in medical record: Yes Previous reaction to sedatives/anesthetics: No Dietary Status: NPO after Midnight Dentition: No loose teeth or bridges ASA Classification *see protocol: CLASS II-Mild systemic disease Plan of Care: Pt appropriate candidate for procedure/moderate/conscious sedation , Risks/benefits of procedure/sedation discussed w/ patient/family
[2017-04-01] MEDS ORDERED: Nitroglycerin 1,000 MCG/10 ML VIAL IV ONE ×2 (12:46→14:16)
[2017-04-01] MEDS ORDERED: Heparin 1,000 UNITS/500 mL NS 500 ML ONE (12:46)
[2017-04-01] MEDS ORDERED: 0.9 % Sodium Chloride 1,000 ML ONE ×2 (12:46→13:33)
[2017-04-01] MEDS ORDERED: Verapamil 5 MG/2 ML VIAL ONE (12:46)
[2017-04-01] MEDS ORDERED: *HR* Heparin 10,000 UNIT/10 ML VIAL ONE (12:46)
[2017-04-01] MEDS ORDERED: *HR* FentaNYL (PF) 100 MCG/2 ML VIAL ONE (13:32)
[2017-04-01] MEDS ORDERED: *HR* Midazolam HCl 2 MG/2 ML VIAL ONE ×2 (13:32→13:45)
--- NOTE | 2017-04-01 14:31 | Invasive Diagnostic Lab Proc ---
Name: Kiran Morales Date of Study: 04/01/2017 Date: 1950 Ht: 68.1in Medical Record#: [id number] Age: 66 Wt: 242.51lb Gender: Male BSA: 2.22 Order #: [id number] BMI: 36.75 Physicians Procedure Physician: Carlos Alberto Gutierrez MD, [facility] Referring MD: Referring MD: Staff Name Position Time In Nohemy Cabrera RT (R) Monitor 01:31 PM Cuca Morin RN Supervisor Finishing 01:31 PM Junaid Weiss RT (R) Scrub 01:31 PM Indications Indication Abnormal Test - Stress Procedures Performed Procedure L HRT ARTERY/VENTRICLE ANGIO PRQ CARDIAC ANGIOPLAST 1 ART Pre-Procedure Checklist Informed consent is complete signed and on chart. H\\T\\P is on chart. ID band is on and ID verified with patient. Patient NPO for procedure The procedure was described for the patient and questions were answered. Blood Pressure: 127/84 ECG is on chart. Rhythm: NSR Plan of Care Patient will tolerate the procedure without complications. Adequate level of comfort will be maintained. Hemodynamics will remain stable Patient will recover from procedure without complications. Respiratory function will be maintained. Cardiac rhythm will remain stable. Patient temperature will be maintained. Patient and/or family have verbalized understanding of the procedure. Patient Education Chief Complaint/Reason for Test: Cardiac Cath Developmental Category: Geriatric (65+ years) Developmentally Appropriate for Age: Yes Learning Barriers: None Education Needs: Procedure Education Method: Verbal Information Taught: Cardiac Cath Educational Evaluation: Able to repeat information Intravenous Access Time IV Size Location DC'd Fluid/Drip Rate Units RN 09:56 AM 20g 1 10/08" Patent On Arrival Lt Antecubital 0.9NaCl 25 ml/hr Allergies Penicillins Vital Signs Time BP (mmHg) HR (bpm) O2 Sat. RR (bpm) LOC 09:58 AM 127 / 84 57 96 % 18 5 = Fully awake and oriented or at pre-proc level 01:32 PM / % 5 = Fully awake and oriented or at pre-proc level 01:33 PM 193 / 106 57 99 % 13 01:34 PM 111 / 96 86 99 % 9 01:38 PM 148 / 101 75 95 % 01:41 PM 138 / 93 54 100 % 26 01:43 PM 145 / 95 60 98 % 15 01:46 PM 133 / 81 68 95 % 18 01:49 PM 131 / 81 66 93 % 14 01:52 PM 133 / 79 66 96 % 22 01:56 PM 144 / 90 62 95 % 19 01:59 PM 140 / 75 63 97 % 16 02:02 PM 146 / 80 65 97 % 18 02:04 PM 147 / 81 65 98 % 19 02:07 PM 143 / 85 58 98 % 19 02:11 PM 149 / 73 63 98 % 20 02:14 PM 133 / 76 65 97 % 20 02:17 PM 139 / 77 70 96 % 24 02:20 PM 143 / 79 33 97 % 18 Procedural Medications Time Medication Dose Units Method Given By 01:35 PM Versed 2 mg Intravenous Cuca Morin RN 01:35 PM Fentanyl 50 mcg Intravenous Cuca Morin RN 01:41 PM Lidocaine 2% 0.5 ml Subcutaneous Carlos Alberto Gutierrez MD, FAC 01:44 PM Heparin 4000 units Nitroglycerin 200 mcg Verapamil 2.5 mg Intraarterial Carlos Alberto Gutierrez MD, FAC 01:44 PM Versed 1 mg Intravenous Cuca Morin RN 01:44 PM Fentanyl 25 mcg Intravenous Cuca Morin RN 01:58 PM Nitroglycerin 200 mcg Intracoronary Carlos Alberto Gutierrez MD 01:58 PM Heparin 1000 units Intravenous Cuca Morin RN 02:10 PM Nitroglycerin 200 mcg Intracoronary Carlos Alberto Gutierrez MD 02:15 PM Nitroglycerin 200 mcg Intracoronary Carlos Alberto Gutierrez MD 02:19 PM Plavix 600 mg Orally Cuca Morin RN ASA Classification: CLASS II- Mild systemic disease (i.e. well-controlled diabetes, hypertension, asthma, cigarette smoking) Deirdre Score Preprocedure Postprocedure Activity 2- Moves 4 extremities sustained head lift Activity 2- Moves 4 extremities sustained head lift Circulation 2- SBP +/= 20 points of pre-anesthetic level Circulation 2- SBP +/= 20 points of pre-anesthetic level Consciousness 2- Awake and alert oriented x 3 Consciousness 2- Awake and alert oriented x 3 O2 Saturation 2- Able to maintain O2 satruation of 92% on room air O2 Saturation 2- Able to maintain O2 satruation of 92% on room air Respiratory 2- Able to deep breathe and cough well Respiratory 2- Able to deep breathe and cough well Total Score 10 Total Score 10 Contrast Agent: Isovue Diagnostic Contrast: 119 ml Total Contrast: 119 ml Fluoro Dose: 1066 mGy Activated Clotting Time Time Seconds to Clot 01:58 PM 295 Procedure Log Time Note Enter By 01:31 PM CathStat 01:31 PM Vitals capture started with the following parameters, Patient=Adult, Interval=3 min, Initial Mbqxgxvn=874 mmHg, Deflation Rate=5 mmHg, Cuff placed on Right Arm 01:31 PM Pt arrived to fence laborer 2 at 13:31 [facility] :31 PM Nohemy Cabrera RT (R) Position: [facility] Cuca Morin RN Position: Supervisor Finishing Time in: :31 [facility] :31 PM Junaid Weiss RT (R) Position: Scrub Time in: 13:31 [facility] :32 PM Patient charges- Angio tray pack, Navilyst 3mm J, Pulse Oximetry and ACIST tubing and transducer [facility] PM Case Delayed No [facility]32 PM Hair removed from procedure site in holding area using clippers. Right wrist prepped with Chloraprep by Cuca Morin RN, safety strap applied then patient was draped. Skin intact. [facility] :32 PM Hair removed from procedure site in holding area using clippers. Right groin prepped with Chloraprep by Cuca Morin RN, safety strap applied then patient was draped. Skin intact. [facility] :32 PM Physican paged/called 13:32. [facility] :32 PM Physician arrived 13:32 [facility] :32 PM ASA Class CLASS II- Mild systemic disease (i.e. well-controlled diabetes, hypertension, asthma, cigarette smoking) [facility] :32 PM Meet and greet completed [facility] :32 PM Sign in performed according to hospital policy. [facility] :32 PM Procedure start 13:[facility] Time: 13:32 Patient comfortable and pain free: Yes [facility] 32 PM Time: 13:32LOC: 5 = Fully awake and oriented or at pre-proc level [facility] :33 PM HR=57 bpm, PWSK=216/106 mmhg, SpO2=99.0 %, Resp=13 B/min, Comment=NSR :33 PM Recorded ECG: HR=57 Condition=Condition 1 01:34 PM HR=86 bpm, HIXE=927/96 mmhg, SpO2=99.0 %, Resp=9 B/min, Comment=NSR 01:35 PM Time: 13:35 Versed 2 mg Intravenous Given by Cuca Morin RN [email or web address] 01:36 PM Time: 13:35 Fentanyl 50 mcg Intravenous Given by Cuca Morin RN, [email or web address] 01:36 PM Pressure channel 1 zeroed. 01:38 PM HR=75 bpm, ODLI=058/101 mmhg, SpO2=95.0 %, Comment=NSR 01:41 PM Time out performed according to hospital policy [email or web address] 01:41 PM Time: 13:41 0.5 ml Lidocaine 2% to right radial Subcutaneous Given by [facility], [email or web address] 01:[facility] PM HR=54 bpm, OTNX=671/93 mmhg, CmF7=765.0 %, Resp=26 B/min, Comment=NSR 01:43 PM Access obtained by percutaneous puncture. 6Fr 10cm Terumo Glidesheath sheath placed in right Radial artery. [id number] [email or web address] 01:43 PM HR=60 bpm, NQHM=209/95 mmhg, SpO2=98.0 %, Resp=15 B/min, Comment=NSR 01:44 PM Time: 13:44 Patient given 4,000 units Heparin, 200 mcg Nitroglycerin, and 2.5 mg Verapamil Intraarterial by Carlos Alberto Gutierrez MD, [facility] [email or web address] 01:44 PM Time: 13:44 Versed 1 mg Intravenous Given by Cuca Morin RN [email or web address] 01:44 PM Time: 13:44 Fentanyl 25 mcg Intravenous Given by Cuca Morin RN [email or web address] 01:44 PM 0.035 260cm Navilyst 3mmJ wire [id number] [email or web address] 01:44 PM 5Fr TIG catheter inserted over the wire [facility] [email or web address] 01:45 PM Pressure channel 1 zeroed. 01:46 PM RCA angiography performed in multiple views. [email or web address] 01:46 PM Recorded Pressure: Ao, HR=68, Condition=Condition 1 (Aorta) Ao 112/88/100 01:46 PM Coronary Dominance: right [email or web address] 01:46 PM HR=68 bpm, RIJU=726/81 mmhg, SpO2=95.0 %, Resp=18 B/min, Comment=NSR 01:47 PM LCA angiography performed in multiple views. [email or web address] 01:47 PM Recorded Pressure: Ao, HR=66, Condition=Condition 1 (Aorta) Ao 117/88/103 01:49 PM HR=66 bpm, TOPJ=026/81 mmhg, SpO2=93.0 %, Resp=14 B/min, Comment=NSR 01:50 PM Lesion found in Proximal LAD. Pre Stenosis: 30 Pre KELSIE Flow: [email or web address] 01:50 PM Lesion found in Mid LAD. Pre Stenosis: 30 Pre KELSIE Flow: [email or web address] 01:50 PM Lesion found in Proximal Circumflex. Pre Stenosis: 50 Pre KELSIE Flow: [email or web address] 01:51 PM Pressure channel 1 zero failed. 01:51 PM Pressure channel 1 zero failed. 01:51 PM Recorded Pressure: LV, HR=70, Condition=Condition 1 (Left Ventricle) LV 123/12/12 01:52 PM Catheter selectively placed in left ventricle [email or web address] 01:52 PM Bolus angiogram of left Ventricle complete: 10 ml/sec for a total of 20 mls [email or web address] 01:52 PM Recorded Pressure: LV, Ao, HR=67, Condition=Condition 1 (Left Ventricle) LV 132/12/22, (Aorta) Ao ?/?/? 01:52 PM HR=66 bpm, WRQX=636/79 mmhg, SpO2=96.0 %, Resp=22 B/min, Comment=NSR 01:53 PM Catheter removed [email or web address] 01:53 PM [ Select Procedure ] 01:53 PM 6Fr IM Runway guide catheter was used to cannulate the PCI vessel successfully. reused? No [email or web address] 01:53 PM .014 [place] 190cm guide wire across target lesion- successful. reused? No [email or web address] 01:53 PM Inflation device was opened. [email or web address] 01:56 PM HR=62 bpm, YCBR=634/90 mmhg, SpO2=95.0 %, Resp=19 B/min, Comment=NSR 01:56 PM .014 [place] 180cm guide wire across target lesion- successful. reused? No [email or web address] 01:58 PM 2.5 mm x 12 mm Emerge Monorail balloon across target lesion- successful. reused? No [email or web address] 01:58 PM Time: 13:58 Nitroglycerin 200 mcg Intracoronary Given by Carlos Alberto Gutierrez MD [email or web address] 01:58 PM At 13:58 the ACT was 295 seconds. [email or web address] 01:59 PM HR=63 bpm, WRQZ=526/75 mmhg, SpO2=97.0 %, Resp=16 B/min, Comment=NSR 01:59 PM Time: 13:58 Heparin 1000 units Intravenous Given by Cuca Morin RN [email or web address] 02:02 PM Balloon inflated @ 14 gideon for 24 seconds [email or web address] 02:02 PM HR=65 bpm, XSUV=843/80 mmhg, SpO2=97.0 %, Resp=18 B/min, Comment=NSR 02:02 PM Balloon inflated @ 12 gideon for 16 seconds [email or web address] 02:04 PM HR=65 bpm, ZQCC=018/81 mmhg, SpO2=98.0 %, Resp=19 B/min, Comment=NSR 02:05 PM Cutting balloon catheter removed intact. [email or web address] 02:06 PM 2.5 mm x 10 mm Flextome Monorail cutting balloon across target lesion- successful. reused? No [email or web address] 02:07 PM Cutting balloon catheter removed intact. [email or web address] 02:07 PM 2.5 mm x 12mm NC Trek Rx balloon across target lesion- successful. reused? No [email or web address] 02:07 PM HR=58 bpm, AOVI=107/85 mmhg, SpO2=98.0 %, Resp=19 B/min, Comment=NSR 02:09 PM Balloon inflated @ 16 gideon for 32 seconds [email or web address] 02:10 PM Time: 14:10 Nitroglycerin 200 mcg Intracoronary Given by Carlos Alberto Gutierrez MD [email or web address] 02:11 PM HR=63 bpm, SITL=557/73 mmhg, SpO2=98.0 %, Resp=20 B/min, Comment=NSR 02:12 PM Balloon catheter removed intact. [email or web address] 02:13 PM Cutting balloon re-inserted. [email or web address] 02:14 PM HR=65 bpm, EHDZ=865/76 mmhg, SpO2=97.0 %, Resp=20 B/min, Comment=NSR 02:14 PM Balloon inflated @ 12 gideon for 28 seconds [email or web address] 02:15 PM Balloon inflated @ 12 gideon for 24 seconds [email or web address] 02:15 PM Time: 14:15 Nitroglycerin 200 mcg Intracoronary Given by Carlos Alberto Gutierrez MD [email or web address] 02:16 PM Balloon catheter removed intact. [email or web address] 02:17 PM HR=70 bpm, LSTH=387/77 mmhg, SpO2=96.0 %, Resp=24 B/min, Comment=NSR 02:17 PM Guide wires removed intact. [email or web address] 02:18 PM Guide catheter removed intact. [email or web address] 02:19 PM Time: 14:19 Plavix 600 mg Orally Given by Cuca Morin RN [email or web address] 02:20 PM HR=33 bpm, USWZ=727/79 mmhg, SpO2=97.0 %, Resp=18 B/min, Comment=NSR 02:21 PM Procedure completed at 14:21 [email or web address] 02:21 PM Sign out completed: Radiation Dose 1066.11 mGy Fluoro Time: 8.5 Isovue 370 - 200ml contrast 119 ml given by Carlos Alberto Gutierrez MD, [facility]. Complications: NoneCardiac Rehab Consult needed: YesConfirmed administered medications: Yes [email or web address] 02:21 PM Isovue 370 - 200ml,1 Bottle(s) used. [email or web address] 02:21 PM Arterial sheath pulled, Vasc Band closure device used and was Successful S/N. [email or web address] 02:21 PM 11 ml air in Vasc Band. [email or web address] 02:21 PM Post ECG NSR [email or web address] 02:22 PM Post Blood Pressure 143/79 [email or web address] 02:22 PM Information taught Cardiac Cath, PCI, and Vasc Band [email or web address] 02:22 PM Education needs Procedure, Plan of Care, and Disease Process [email or web address] 02:22 PM Learning barriers :None [email or web address] 02:22 PM Education Methods Verbal [email or web address] 02:22 PM Education evaluation Able to repeat information [email or web address] 02:22 PM Site status No bleeding/hematoma - Rt Wrist as reported by Junaid Weiss RT (R) at 14:22 [email or web address] 02:22 PM Delay to floor No [email or web address] 02:22 PM Family placed in consult room. [email or web address] 02:22 PM Complications: None [email or web address] 02:22 PM Fluoro Time: 8.5 [email or web address] 02:23 PM Isovue 370 - 200ml contrast 119 ml given by Carlos Alberto Gutierrez MD, [facility]. [email or web address] 02:23 PM Radiation Dose 1066.11 mGy [email or web address] 02:26 PM Report given to Ronnie WANG Pt taken to E Room #24. 14:26 [email or web address] 02:26 PM Patient out of room: 14:26 [email or web address] Complications Complication None None Hemodynamics Pressures Site Systolic/A Wave Diastolic/V Wave Mean AO 112 88 100 AO 117 88 103 LV 123 12 12 LV 132 12 22 AO Post Procedure Information Blood Pressure: 143/79 mmHg Rhythm: NSR Post procedural instructions were not given Closure Device Time Device Success/Fail 04/01/2017 2:19:00 PM Mechanical Compression yes Site Checks Time Location Status Staff Sheath In? Note 11:00 PM 02:22 PM Rt Wrist No bleeding/hematoma Junaid Weiss RT (R) Pulses Time Site Pre-Procedure Post-Procedure Note 04/01/2017 9:58:00 AM Bilateral DP \\T\\ PT 2+ 2+ 04/01/2017 9:58:00 AM Bilateral radial 2+ 2+ Updated by Nohemy Cabrera RT(R) on 04/01/2017 2:26:48 PM electronically signed on 04/01/2017 2:27:14 PM with status of Final
--- NOTE | 2017-04-01 17:23 | Electrocardiograph Report ---
[facility] [employer] Test Date: 2017-03-31 Pat Name: Kiran Morales Department: 103 Room: 2NE24 Gender: M Color Adviser: YONIS : 1950 Requested By: Bud Mejia Order Number: [id number] Reading MD: Sonu Jacques MD Measurements Intervals [place] Rate: 68 P: 60 CA: 155 QRS: 29 QRSD: 102 T: 38 QT: 407 QTc: 424 Interpretive Statements SINUS RHYTHM WITH OCCASIONAL SUPRAVENTRICULAR PREMATURE COMPLEXES Electronically Signed On 04-01-2017 17:21:38 EDT by Sonu Jacques MD
--- NOTE | 2017-04-01 17:23 | Internal Med Progress Note ---
Date of Encounter: 04/01/17 Time of Encounter: 17:23 - Assessment and plan (1) Chest pain Current Visit: Yes Status: Acute Assessment and plan: Admitted with typical chest pain Troponin negative Had abnormal stress test recently outside hospital. Previous PCI in 2006 Plan: Cardiology consult and yesterday. Patient underwent left heart catheterization today. Patient had a PCI. Likely home tomorrow. Qualifiers: Chest pain type: chest pain due to myocardial ischemia Ischemic chest pain type: stable angina pectoris Qualified Code(s): I20.8 - Other forms of angina pectoris (2) Hypertension Current Visit: Yes Status: Acute Assessment and plan: Blood pressure within acceptable limits. Qualifiers: Hypertension type: essential hypertension Qualified Code(s): I10 - Essential (primary) hypertension (3) Hyperlipidemia Current Visit: Yes Status: Acute Assessment and plan: LDL: 59 Will continue statin. Qualifiers: Hyperlipidemia type: pure hypercholesterolemia Qualified Code(s): E78.00 - Pure hypercholesterolemia, unspecified; E78.0 - Pure hypercholesterolemia (4) GERD (gastroesophageal reflux disease) Current Visit: Yes Status: Acute Assessment and plan: Continue PPI Qualifiers: Esophagitis presence: esophagitis presence not specified Qualified Code(s) : K21.9 - Gastro-esophageal reflux disease without esophagitis (5) DVT prophylaxis Current Visit: Yes Status: Acute Assessment and plan: Heparin - Subjective Interval history: Seen and examined. Chart reviewed. Patient is comfortably lying in the bed. Patient denies chest pain, shortness of breath, dizziness, diarrhea or vomiting. - Constitutional Vitals: Temp Pulse Resp BP Pulse Ox 97.9 F 57 18 127/84 96 04/01/17 04:37 04/01/17 07:00 04/01/17 07:00 04/01/17 07:00 04/01/17 07:00 General appearance: Present: A&O X 3, pleasant, no acute distress - Head Head exam: Present: atraumatic, normocephalic - Eye Eye exam: Present: PERRL, conjuntiva pink, sclera anicteric Pupils: Present: PERRL - Neck Neck exam general surgery: Present: supple, trachea midline. Absent: lymphadenopathy - Respiratory Respiratory exam: Present: CTAB. Absent: accessory muscle use, rales, rhonchi, wheezes - Cardiovascular Cardiovascular exam: Present: RRR, +S1, +S2. Absent: diastolic murmur, gallop, rubs, systolic murmur - GI/Abdominal GI/Abdominal exam: Present: normal bowel sounds, soft, no peritoneal signs. Absent: distended, tenderness - Extremities Exam Extremities exam: Present: warm, radial pulses palpable and symetrical. Absent : calf tenderness, cyanotic, pedal edema - Neurological Exam Neurological exam: Present: CN II-XII intact, oriented X3, no focal deficits. Absent: pronater drift, facial droop, speech deficit - Skin Skin exam: Present: dry, intact Internal Medicine: Result - Labs CBC & Chem 7: 04/01/17 05:54 04/01/17 05:54 Labs: Short CBC 04/01/17 Range/Units 05:54 WBC 6.1 (4.3-11.1) K/mcL Hgb 13.6 (12.9-16.9) g/dL Hct 39.4 (37.5-50.1) % Plt Count 160 (140-400) K/mcL Neutrophils # 4.1 (1.6-8.9) K/mcL BMP 04/01/17 05:54 Sodium 141 Potassium 4.2 Chloride 109 Carbon Dioxide 26 BUN 13 Creatinine 0.94 Glucose 107 H Calcium 8.8 - ABG Interpretation ABG results: PT/INR, D-dimer PT 11.2 Seconds (9.4-12.1) 03/31/17 14:37 Consult Discharge Plan - Plan Instructions: Chest Pain (DC), Chronic Hypertension (DC) Referrals: Sebastian Stockton MD [Primary Care Provider] - 04/09/17 2:15 pm
[2017-04-02] MEDS: *HR* Heparin 5,000 UNIT/ML VIAL SQ SCH (05:47)
[2017-04-02 06:59] VITALS: BP 125/83
--- NOTE | 2017-04-02 07:43 | Discharge Summary ---
<Jhon Jeter - Last Filed: 04/02/17 08:36> Date of Encounter: 04/02/17 Time of Encounter: 07:41 - Discharge Diagnosis (1) Abnormal stress test Priority: Primary Status: Acute (2) Coronary artery disease Priority: Primary Status: Acute Qualifiers: Coronary Disease-Associated Artery/Lesion type: [place] artery [place] vs. transplanted heart: [place] heart Associated angina: without angina Qualified Code(s): I25.10 - Atherosclerotic heart disease of [place] coronary artery without angina pectoris (3) Rheumatoid arthritis Priority: Secondary Status: Chronic Qualifiers: Rheumatoid arthritis location: unspecified site Rheumatoid factor presence : unspecified presence Qualified Code(s): M06.9 - Rheumatoid arthritis, unspecified (4) Chronic back pain Priority: Secondary Status: Chronic Qualifiers: Back pain location: low back pain Back pain laterality: midline Sciatica presence: unspecified whether sciatica present Qualified Code(s): M54.5 - Low back pain; G89.29 - Other chronic pain (5) Hyperlipidemia Priority: Secondary Status: Chronic Qualifiers: Hyperlipidemia type: pure hypercholesterolemia Qualified Code(s): E78.00 - Pure hypercholesterolemia, unspecified; E78.0 - Pure hypercholesterolemia (6) Hypertension Priority: Secondary Status: Chronic Qualifiers: Hypertension type: essential hypertension Qualified Code(s): I10 - Essential (primary) hypertension (7) GERD (gastroesophageal reflux disease) Priority: Secondary Status: Chronic Qualifiers: Esophagitis presence: esophagitis presence not specified Qualified Code(s) : K21.9 - Gastro-esophageal reflux disease without esophagitis (8) DVT prophylaxis Priority: Secondary Status: Chronic - Discharge Medications Prescriptions: Clopidogrel [Plavix] 75 mg PO DAILY #30 tablet Home Medications: Dexlansoprazole [Dexilant] 60 mg PO DAILY 03/31/17 [History] Ezetimibe [Zetia] 10 mg PO DAILY 03/31/17 [History] Folic Acid 2 mg PO DAILY 03/31/17 [History] Hydroxychloroquine [Plaquenuil] 400 mg PO DAILY 03/31/17 [History] Methotrexate [Otrexup] 20 mg PO SAMPSON 03/31/17 [History] Metoprolol XL (24 HR) Succ [Toprol Xl] 50 mg PO DAILY 03/31/17 [History] Nitroglycerin 0.4 mg PO Q5M PRN 03/31/17 [History] Olmesartan Medoxomil 40 mg PO DAILY 03/31/17 [History] Oxycodone HCl/Acetaminophen [Percocet 10-325 mg Tablet] 1 each PO Q6H PRN [History] Rosuvastatin Calcium 20 mg PO HS 03/31/17 [History] Zolpidem [Ambien] 10 mg PO HS PRN 03/31/17 [History] amLODIPine [Norvasc] 5 mg PO DAILY 03/31/17 [History] Aspirin Enteric Coated [Aspirin EC] 81 mg PO DAILY #0 04/02/17 [Rx] Clopidogrel [Plavix] 75 mg PO DAILY #30 tablet 04/02/17 [Rx] Allergies/Adverse Reactions: Allergies Penicillins [PCN] Allergy (Verified 10/23/15 08:36) Hives Procedures/tests Complete & Pending: Procedures Performed prior 72 hours Category Date Time Status CL Cardiac Catheterization [CL] Routine Marine Safety Officer 04/01/17 09:40 Ordered Date of admission: 03/31/17 16:45 Primary care physician: Sebastian Stockton, Discharging clinician: Jhon Jeter Anticipated date of discharge: 04/02/17 - Patient Status Disposition: Home, Self-Care Condition: Good Functional capacity at discharge: independent ambulation Overall status at discharge: patient is back to baseline - Discharge Instructions Instructions: Clopidogrel (By mouth), Chest Pain (DC), Left Heart Catheterization (DC), Right Heart Catheterization (DC), Chronic Hypertension (DC ), Coronary Angioplasty, Cellophane Bag Machine Operator (GEN) Follow Up With: Corazon Fountain CNP [Partnered Physician] - (cardiology office will call you at home w/ appt date & time. They are setting this up. f/u in 1 week.) Sebastian Stockton MD [Primary Care Provider] - 04/09/17 2:15 pm Additional Instructions: Please follow-up with your primary care physician in the next 1-2 weeks. Please resume your home medications. Please start taking Plavix daily. Please follow up with cardiology as scheduled. Please return for any new or worsening symptoms. RISK FACTORS: STOP SMOKING: If you smoke, STOP. Smoking or tobacco use significantly increases your risk of heart disease because nicotine causes the arteries to narrow or constrict. It also causes fats to stick to the artery. Your chances of having a heart attack are greatly increased if you continue to smoke. For more information, call the education line for smoking cessation 9-677-AGVCDFB EAT A LOW FAT/CHOLESTEROL/SODIUM DIET: This diet may help reduce your chances of having a heart attack. LIFTING: With affected extremity: Avoid bending, pushing off and lifting more than 2 pounds for 24 hours The following 48 hours, avoid lifting anything more than 5 pounds Avoid strenuous activity or repetitive motions ACTIVITY: You may walk or climb stairs as tolerated You can resume sexual activity as tolerated In general, you are encouraged to engage in a minimum of 30 minutes or more of moderate intensity physical activity, such as brisk walking, daily or at least 3 -4 times weekly BATHING Do not submerge the site into water (bath tub, hot tub, swimming pool, dishes) for 1 week. This can be a source for infection into the blood stream. You may shower after 24 hours SITE CARE: After 24 hours, you may remove the dressing and leave the site open to air. Keep the site clean and dry. Clean gently and pat dry. You can expect bruising and tenderness that gradually resolve within a week or two. Return to work as instructed per your physician Resume driving as instructed per physician-3 DAYS AFTER PROCEDURE Keep all scheduled follow up appointments Resume medications as instructed IMPORTANT: If prescribed a Platelet Aggregation Inhibitor such as, Plavix, Brilinta or Effient: Duration of therapy is minimum one year These medications are often used in combination with Aspirin in prevention of future heart attacks Never discontinue unless consult with your Hvac Technician STROKE (CVA) Risk factors for a stroke are: Age, cigarette smoking, diabetes, excessive alcohol consumption, family history, high blood pressure, overweight, physical inactivity, prior stroke, heart attack, diagnosis of carotid artery stenosis or other artery disease. Warning signs: Sudden numbness or weakness of the face, arm or leg; especially on one side of the body, sudden confusion, trouble speaking or understanding, sudden trouble seeing in one or both eyes, sudden trouble walking, dizziness, loss of balance or coordination, sudden severe headache with no cause. Call 911 or go to the Emergency Room. CONGESTIVE HEART FAILURE: If you have been diagnosed with Congestive Heart Failure (CHF) and your symptoms return, make an appointment with your physician Weigh yourself daily. Notify your physician if you have a weight gain of two or more pounds in one day or five or more pounds in one week. If you experience any difficulty breathing, please call 911 BLEEDING: Although the risk of bleeding is minimal, it can happen. If you have any bleeding from the site, apply firm pressure above the puncture site for 10-15 minutes. If the bleeding does not stop, continue manual pressure and call 911 Contact [facility] ( ) if: You develop a fever greater than 101 degrees Fahrenheit Your site becomes reddened or has any drainage You have an increase in pain or burning at the site or if a large knot forms at the site. If you experience chest pain, shortness of breath, dizziness, or extreme tiredness, stop the activity and rest. Please notify [facility] office if you experience any of these symptoms and they are not relieved by rest please call 911! - Diet and Activity Activity: increase activity as tolerated Diet: low fat, low cholesterol, low salt diet Interval History: Patient seen and examined at bedside. Patient has no complaints at this time. Patient denies chest pain, shortness of breath, diaphoresis. Hospital course: Mr. Morales is a 66 year old male with history of coronary artery disease presents due to abnormal stress test. Patient was seen at an outside hospital and had a cardiac stress test donean was sent home and was called on the that the results are normal so they recommended that he present to our facility. Patient did have some mild chest pain upon presentation that was quickly relieved with sublingual nitroglycerin. Patient was seen by cardiology who performed a cardiac catheterization and balloon angioplasty was performed and no stent was placed. The patient has been chest pain-free his entire admission. Patient will be discharged home in stable condition. - Time Spent with Patient Total time spent providing and/or coordinating discharge services: - Constitutional Vitals: Temp Pulse Resp BP Pulse Ox 97.9 F 59 17 125/83 99 04/02/17 06:57 04/02/17 06:57 04/02/17 06:57 04/02/17 06:57 04/02/17 06:57 General appearance: Present: A&O X 3, pleasant, no acute distress - Respiratory Respiratory exam: Present: CTAB. Absent: rales, rhonchi, wheezes - Cardiovascular Cardiovascular exam: Present: bradycardia, RRR. Absent: gallop, irregular rhythm, rubs, systolic murmur - GI/Abdominal GI/Abdominal exam: Present: normal bowel sounds, soft. Absent: distended, tenderness - Extremities Exam Extremities exam: Present: warm. Absent: pedal edema, tenderness - Neurological Exam Neurological exam: Present: alert, CN II-XII intact, oriented X3, no focal deficits <Eliana,Luis Fernando P - Last Filed: 04/02/17 12:37> Date of Encounter: 04/02/17 - Discharge Diagnosis (1) Chest pain Status: Acute Qualifiers: Chest pain type: chest pain due to myocardial ischemia Ischemic chest pain type: stable angina pectoris Qualified Code(s): I20.8 - Other forms of angina pectoris (2) Hypertension Status: Chronic Qualifiers: Hypertension type: essential hypertension Qualified Code(s): I10 - Essential (primary) hypertension (3) Hyperlipidemia Status: Chronic Qualifiers: Hyperlipidemia type: pure hypercholesterolemia Qualified Code(s): E78.00 - Pure hypercholesterolemia, unspecified; E78.0 - Pure hypercholesterolemia (4) GERD (gastroesophageal reflux disease) Status: Chronic Qualifiers: Esophagitis presence: esophagitis presence not specified Qualified Code(s) : K21.9 - Gastro-esophageal reflux disease without esophagitis (5) DVT prophylaxis Status: Chronic Procedures/tests Complete & Pending: Procedures Performed prior 72 hours Category Date Time Status CL Cardiac Catheterization [CL] Routine Marine Safety Officer 04/01/17 09:40 Ordered Date of admission: 03/31/17 16:45 Primary care physician: Sebastian Stockton, Consults: 04/02/17 07:49 Consult to Cardiac Rehabilitation-Phase1 [CONS] Routine Comment: Reason for Consult: PCI Call Completed: No Hospital course: Mr. Morales is a 66 year old male - Time Spent with Patient Total time spent providing and/or coordinating discharge services: - Constitutional Vitals: Temp Pulse Resp BP Pulse Ox 97.9 F 59 17 125/83 99 04/02/17 06:57 04/02/17 06:57 04/02/17 06:57 04/02/17 06:57 04/02/17 06:57 - Attending Attestation I examined this patient and my medical decision-making was reviewed with the CHANNEL PROGRAM MANAGER/PA/Advanced Practice Nurse/Resident Physician. I agree with the documented findings, disposition and treatment plan as described except to the extent set forth below.
--- NOTE | 2017-04-02 08:49 | Cardiology Progress Note ---
Date of Encounter: 04/02/17 Time of Encounter: 08:20 Assessment and Plan (1) Chest pain Current Visit: Yes Status: Acute Presents with typical chest pain symptoms--states similar to prior [place]. Hx of pior PCI in 2006. Troponin negative, ECG without ischemic ECG changes. Chest pain free upon exam. Recent abnormal stress test at outside Hospital--mildly severe perfusion defect involving the distal anterior wall, apex, and distal inferior wall, gated EF=57% . [facility] 04/01/17: s/p successful PTCA with cutting balloon to prox PDA; otherwise non -obstructive CAD, EF 50%. Has been chest pain free--up and ambulating in room without symptoms. No issues with right radial cath site. Cardiac rehab consulted. Recommend uninterrupted DAPT (asa + plavix) for 3 months; recommend decreasing home asa dose to 81 mg daily. Continue statin and betablocker. Risk factor modification emphasized, post PCI discharge instructions discussed. Cardiology will sign-off, will coordinate outpatient appt. Qualifiers: Chest pain type: chest pain due to myocardial ischemia Ischemic chest pain type: stable angina pectoris Qualified Code(s): I20.8 - Other forms of angina pectoris (2) Abnormal stress test Current Visit: Yes Status: Acute Plan as stated above. Discussion w patient/family: The assessment and plan as outlined above was discussed with the patient and/or family members who expressed understanding and agreement. All questions were answered. Thank you for involving us in the care of your patient. Please call with any questions. The patient was discussed and reviewed with Dr. Cedeno; Cardiology will sign-off , will arrange for outpatient follow-up in 1-2 weeks. Subjective Principal diagnosis: Unstable angina; abnormal stress test Interval history: Seen and examined. Denies recurrent chest pain overnight. Denies any other events, is ready for discharge home today. No issue with right radial cath site. Objective Vital Signs, Last 4 Hours Temp Pulse Resp BP Pulse Ox 04/02/17 06:57 97.9 F 59 17 125/83 99 General: Conversant, No Apparent Distress HEENT: Atraumatic, Normocephaly, Mucus Membranes Moist Neck: No JVD, Normal carotid pulses Cardiac: Reg Rate and Rhythm, Normal S1 and S2, No Murmur Lungs: Normal Breath Sounds, No Wheeze, Rales, Rhonchi Neuro: Alert and responsive, No focal deficits noted Abdomen: Soft, Non-Tender Skin: No rashes noted on visualized skin Musculoskeletal: No Chest Wall Tenderness Extremities: No Clubbing, No Cyanosis, No Edema, Normal Pulses Other: right radial cath site: dressing removed, +2 radial pulses, no hematoma, oozing , or ecchymosis noted. Brisk cap refill. Results 04/01/17 05:54 04/01/17 05:54 - Imaging and Cardiology Stress Test: report reviewed Cardiac cath: report reviewed Other Results: 12 hour tele: avg HR=59 SR with frequent PACs. No event, arrhythmia - EKG Interpretation EKG results cardiology: personally reviewed Consult Discharge Plan - Plan Instructions: Clopidogrel (By mouth), Chest Pain (DC), Left Heart Catheterization (DC), Right Heart Catheterization (DC), Chronic Hypertension (DC ), Coronary Angioplasty, Glove Presser (GEN) Additional Instructions: Please follow-up with your primary care physician in the next 1-2 weeks. Please resume your home medications. Please start taking Plavix daily. Please follow up with cardiology as scheduled. Please return for any new or worsening symptoms. Referrals: Sebastian Stockton MD [Primary Care Provider] - 04/09/17 2:15 pm Prescriptions: Clopidogrel [Plavix] 75 mg PO DAILY #30 tablet
[2017-04-02] MEDS ORDERED: Aspirin Enteric Coated 81 MG Tablet PO SCH (09:00)
[2017-04-02] MEDS: Metoprolol XL (24 HR) Succ 50 MG TAB.ER.24H PO SCH (09:43)
[2017-04-02] MEDS: Folic Acid 1 MG TABLET PO SCH (09:44)
[2017-04-02] MEDS: Valsartan 160 MG TABLET PO SCH (09:44)
[2017-04-02] MEDS: amLODIPine 5 MG TABLET PO SCH (09:44)
--- NOTE | 2017-04-02 15:48 | Invasive Diagnostic Lab ---
Name: Kiran Morales Date of Study: 04/01/2017 Date: 1950 Ht: 173.0 cm /68.1 in Medical Record#: [id number] Age: 66 Wt: 110. kg / 242.51 lb Account/Order#: [id number] Gender: Male BSA: 2.22 Order #: [id number] Fluoro Dose: 1066 mGy BMI: 36.75 Procedure Physician: Carlos Alberto Gutierrez MD, [facility] Referring MD: Referring MD: Procedures Performed: LEFT HEART CATH PTCA Single Major Vessel Indications: Abnormal Test - Stress Impressions: There is severe one vessel coronary artery disease. The left ventricle is normal and has normal contractility EF 50% Patient had successful PTCA with cutting balloon in the ostial proximal PDA with mild residual disease. Recommendations: Optimal medical therapy of patient's disease. Aggressive risk factor modification. History/Risk Factors: ARTHRITIS POSITIVE STRESS TEST Hypertension Dyslipidemia Procedure Access obtained in the right Radial artery by percutaneous puncture Patient had successful PTCA in the proximal PDA. Complications: None, None Contrast: Isovue 119ml Closure Device: Mechanical Compression Hemodynamics: Pressures Site Systolic/ A Wave Diastolic/ V Wave End Diastolic/ Mean HR AO 112 88 100 68 AO 117 88 103 66 LV 123 12 12 70 LV 132 12 22 67 AO 0 LV Ventriculography Ejection Method: LV Gram Ejection Fraction: 50% Wall Motion: LEE Anterobasal Normal Anterolateral Normal Apical: Normal Inferoapical Mild Hypokinesis Inferobasal Normal Coronary Dominance: right Lesion Findings/Interventions * Left Main Coronary Artery The LMCA is angiographically free of disease. * Left Anterior Descending There is a 30% stenosis in the Proximal LAD. There is a 30% stenosis in the Mid LAD. * Circumflex There is a 50-60% stenosis in the ostial Proximal Circumflex. * Right Coronary Artery There is a 12 mm long, 90% stenosis in the Right ostial PDA. The lesion has no thrombus present. An intervention was performed on the Right PDA with a final stenosis of 20-30%. There were no lesion complications. The final KELSIE flow was 3. PLB is a larger vessel with more distribution. Patent mid stent with 30% instent restenosis. Interventional Device(s) Vessel Segment Type Name Diameter (mm) Length (mm) Right PDA Balloon Emerge Monorail 2.5 12 Right PDA Cutting Balloon Flextome Monorail 2.5 10 Right PDA Balloon NC Trek Rx 2.5 12 Updated by Nohemy Cabrera, RT(R) on 04/01/2017 2:29:58 PM Carlos Alberto Gutierrez MD, FAC electronically signed on 04/02/2017 3:42:46 PM with status of Final
[2017-04-05] MEDS ORDERED: *HR* Methotrexate 2.5 MG TABLET PO SCH (17:19)
== END 2017-04-02 10:30 | disposition home or self-care (01) ==
LOC: EMEROO 13:41 → 2NENU 13:41
PROVIDERS: ADMIT Internal Medicine; ATTEND Internal Medicine

== ENCOUNTER 2017-05-01 11:01 | Observation (INO) ==
[2017-05-01] MEDS ORDERED: Aspirin 81 MG TAB.CHEW PO ONE (11:02)
--- NOTE | 2017-05-01 11:07 | Emergency Department Note ---
Disposition Clinical Impression: Chest pain Qualifiers: Chest pain type: unspecified Qualified Code(s): R07.9 - Chest pain, unspecified Disposition: Admitted As Inpatient Condition: Fair Referrals: NONE,PCP [Non-Partnered Physician] - Time of Disposition: 14:30 Chest Pain HPI - General Stated Complaint: C/P & SOB Time Seen by Provider: 05/01/17 11:02 Source: patient Mode of arrival: wheelchair Limitations: no limitations Vital Signs Reviewed: Yes Nursing Notes Reviewed: Yes - History of Present Illness HPI Narrative: 66-year-old who on her with a cardiac catheter back on 04/01/2017 and had a balloon of the PDA without stenting due to its location who comes in with a couple day history of exertional dyspnea that got progressively worse. The patient was wearing a Holter monitor and turned it into cardiology today and they sent him down here because he was having this exertional chest pain. Pt complaint: chest pain Onset (ago): day(s) Duration: intermittent Onset: during rest, during exertion Pain Location: substernal, left chest Severity: moderate Quality: tightness, aching, heaviness Pain Radiation: none Improves with: nothing Worsens with: exertion Context: other (Recent balloon angioplasty 04/01/2017) Associated symptoms: Reports: dyspnea Treatments prior to arrival chest pain: none - Related Data Home Medications Medication Instructions Recorded Confirmed Dexlansoprazole [Dexilant] 60 mg PO DAILY 03/31/17 04/09/17 Ezetimibe [Zetia] 10 mg PO DAILY 03/31/17 04/09/17 Folic Acid 2 mg PO DAILY 03/31/17 04/09/17 Hydroxychloroquine [Plaquenuil] 400 mg PO DAILY 03/31/17 04/09/17 Methotrexate [Otrexup] 20 mg PO SAMPSON 03/31/17 04/09/17 Metoprolol XL (24 HR) Succ [Toprol 50 mg PO DAILY 03/31/17 04/09/17 Xl] Nitroglycerin 0.4 mg PO Q5M PRN 03/31/17 04/09/17 Olmesartan Medoxomil 40 mg PO DAILY 03/31/17 04/09/17 Oxycodone HCl/Acetaminophen 1 each PO Q6H PRN 03/31/17 04/09/17 [Percocet 10-325 mg Tablet] Rosuvastatin Calcium 20 mg PO HS 03/31/17 04/09/17 Zolpidem [Ambien] 10 mg PO HS PRN 03/31/17 04/09/17 amLODIPine [Norvasc] 5 mg PO DAILY 03/31/17 04/09/17 Previous Rx's Medication Instructions Recorded Aspirin Enteric Coated [Aspirin EC] 81 mg PO DAILY #0 04/02/17 Clopidogrel [Plavix] 75 mg PO DAILY #30 tablet 04/02/17 Isosorbide MONOnitrate (24 HR) 30 mg PO DAILY #30 tab.er.24h 04/10/17 [Imdur] Allergies Allergy/AdvReac Type Severity Reaction Status Date / Time Penicillins [PCN] Allergy Hives Verified 04/09/17 16:06 All systems ED: reviewed and negative except as stated. Constitutional: Denies: fever, chills, weakness, weight change Eyes: Denies: eye pain, eye discharge, vision change ENT ED: Denies: ear pain, throat pain, dental pain, hearing loss, epistaxis, congestion, dysphagia Cardiovascular: Reports: chest pain. Denies: palpitations, dyspnea on exertion , edema, syncope Respiratory: Reports: dyspnea. Denies: cough, wheezes, hemoptysis, stridor Gastrointestinal: Denies: abdominal pain, nausea, vomiting, diarrhea, constipation, hematemesis, melena, hematochezia Genitourinary: Denies: urgency, dysuria, frequency, hematuria Musculoskeletal: Denies: back pain, neck pain, arthralgia, myalgia Integumentary: Denies: rash, abrasion, lesions Neurological: Denies: headache, weakness, numbness, paresthesias, confusion, abnormal gait, vertigo Psychiatric: Denies: anxiety, depression, suicidal thoughts, homicidal thoughts , auditory hallucinations, visual hallucinations Endocrine: Denies: fatigue Hematological/Lymphatic: Denies: easy bleeding, easy bruising Allergic/Immunologic: Denies: facial swelling, urticaria Chest Pain PMH - Past Medical History Medical history: Reports: arthritis, coronary artery disease, GERD, hyperlipidemia, hypertension, myocardial infarction, RA Surgical history: Reports: angioplasty/stent, appendectomy, cholecystectomy Psychiatric history: Reports: no psych history - Social History Smoking Status: Former smoker Alcohol use: Reports: none Drug use: Reports: none Physical Exam - General Limitations: no limitations General appearance: alert, in no apparent distress - Head Head exam: atraumatic, normocephalic, normal inspection - Eye Eye exam: Present: normal appearance, PERRL, EOMI - ENT ENT exam: normal exam, normal oropharynx, mucous membranes moist - Neck Neck exam: Present: normal inspection, full ROM, trachea midline - Chest Chest inspection: Present: normal inspection, symmetric chest wall rise - Respiratory Respiratory exam: Present: normal lung sounds bilaterally - Cardiovascular Cardiovascular exam: Present: regular rate, normal rhythm, normal heart sounds - Abdominal Exam Abdominal exam: Present: soft, Non-Tender. Absent: tenderness, distention, guarding, rebound, rigidity - Extremities Exam Extremities exam: Present: normal inspection, full ROM. Absent: tenderness, pedal edema - Expanded Lower Extremity Exam Neurovascular/Tendon exam: Absent: motor deficit, sensory deficit, tendon deficit Gait: observed and normal - Back Exam Back exam: Present: normal inspection, full ROM. Absent: tenderness - Neurological Exam Neurological exam: Present: alert, oriented X3 - Psychiatric Psychiatric exam: Present: normal affect, normal mood - Skin Skin exam: Present: warm, dry, intact, normal color Course - Reevaluation(s) Reevaluation #1: 66-year-old who had presented with exertional chest pain and dyspnea who had acute onset of head and neck pain just after he received his aspirin. We'll obtain a CT a of the head and neck. Time: 11:17 Reevaluation #2: Repeat EKG was obtained as the initial EKG appeared to have limb reversal. Current EKG shows a sinus bradycardia without acute ST segment change. Time: 11:59 - Consultations Consultation #1: Discussed with Dr. Esposito, admit. Would not start heparin at this time. Time: 14:41 Consultation #2: Discussed with Dr. Shaffer, admit. Time: 14:41 Vital Signs Temperature 98.3 F 05/01/17 11:03 Pulse Rate 54 05/01/17 11:03 Respiratory Rate 16 05/01/17 11:03 Blood Pressure 131/96 05/01/17 11:03 O2 Sat by Pulse Oximetry 96 05/01/17 11:03 Temperature 98.3 F 05/01/17 11:03 Pulse Rate 54 05/01/17 11:03 Respiratory Rate 16 05/01/17 11:03 Blood Pressure 131/96 05/01/17 11:03 O2 Sat by Pulse Oximetry 96 05/01/17 11:03 Oxygen Delivery Oxygen Delivery Room Air Chest Pain - Lab Data Lab results reviewed: Yes I reviewed the patient's lab results. Result diagrams: 05/01/17 11:20 05/01/17 11:20 Lab Results 05/01/17 05/01/17 05/01/17 Range/Units 11:20 11:20 11:20 WBC 7.8 (4.3-11.1) K/mcL RBC 4.56 (4.19-5.50) M/mcL Hgb 14.3 (12.9-16.9) g/dL Hct 40.2 (37.5-50.1) % MCV 88.2 (83.0-100.0) fL MCH 31.4 (28.0-33.3) pg MCHC 35.6 H (31.6-35.5) g/dL RDW 13.2 (11.5-14.5) % Plt Count 199 (140-400) K/mcL MPV 10.1 (9.4-12.4) fL Immature Gran % 2.1 (0-4) % Seg Neutrophils % 71.6 % Lymphocytes % 16.6 % Monocytes % 7.6 % Eosinophils % 1.2 % Basophils % 0.9 % Neutrophils # 5.6 (1.6-8.9) K/mcL Lymphocytes # 1.3 (0.6-4.6) K/mcL Monocytes # 0.6 (0.0-1.3) K/mcL Eosinophils # 0.1 (0.0-0.6) K/mcL Basophils # 0.1 (0.0-0.2) K/mcL PT 11.5 (9.4-12.1) Seconds INR 1.1 APTT 28.9 (26.0-36.0) Seconds Sodium (136-145) mEq/L Potassium (3.5-4.5) mEq/L Chloride (98-109) mEq/L Carbon Dioxide (19-29) mEq/L BUN (8-26) mg/dL Creatinine (0.72-1.25) mg/dL Est GFR ( Amer) (> 60) Est GFR (Non-Af Amer) (> 60) BUN/Creatinine Ratio (6-26) Glucose (70-99) mg/dL Calculated Osmolality (280-300) Calcium (8.6-10.8) mg/dL Troponin I (0-0.03) ng/mL B-Natriuretic Peptide 50 (0-100) pg/mL 05/01/17 05/01/17 Range/Units 11:20 11:20 WBC (4.3-11.1) K/mcL RBC (4.19-5.50) M/mcL Hgb (12.9-16.9) g/dL Hct (37.5-50.1) % MCV (83.0-100.0) fL MCH (28.0-33.3) pg MCHC (31.6-35.5) g/dL RDW (11.5-14.5) % Plt Count (140-400) K/mcL MPV (9.4-12.4) fL Immature Gran % (0-4) % Seg Neutrophils % % Lymphocytes % % Monocytes % % Eosinophils % % Basophils % % Neutrophils # (1.6-8.9) K/mcL Lymphocytes # (0.6-4.6) K/mcL Monocytes # (0.0-1.3) K/mcL Eosinophils # (0.0-0.6) K/mcL Basophils # (0.0-0.2) K/mcL PT (9.4-12.1) Seconds INR APTT (26.0-36.0) Seconds Sodium 140 (136-145) mEq/L Potassium 4.0 (3.5-4.5) mEq/L Chloride 109 (98-109) mEq/L Carbon Dioxide 22 (19-29) mEq/L BUN 10 (8-26) mg/dL Creatinine 0.97 (0.72-1.25) mg/dL Est GFR ( Amer) > 60 (> 60) Est GFR (Non-Af Amer) > 60 (> 60) BUN/Creatinine Ratio 10 (6-26) Glucose 95 (70-99) mg/dL Calculated Osmolality 289 (280-300) Calcium 9.4 (8.6-10.8) mg/dL Troponin I 0.00 (0-0.03) ng/mL B-Natriuretic Peptide (0-100) pg/mL - Radiology Data Radiology results reviewed: Yes I reviewed the patient's radiology results. Chest X-Ray 05/01/17 11:02 IMPRESSION: No acute cardiopulmonary disease D/ / Gaston Adams MD / Gaston Adams MD Interpreting Provider: Gaston Adams MD Neck CTA 05/01/17 11:15 IMPRESSION: No acute intracranial hemorrhage or mass effect. Unremarkable CTA of the head and neck. D/ / Boris Hess MD / Boris Hess MD Interpreting Provider: Boris Hess MD Angiography CT 05/01/17 11:16 IMPRESSION: No acute intracranial hemorrhage or mass effect. Unremarkable CTA of the head and neck. D/ / Boris Hess MD / Boris Hess MD Interpreting Provider: Boris Hess MD - EKG Data EKG attestation: Yes I reviewed and interpreted this EKG. EKG shows normal: sinus rhythm Rate: bradycardia Rhythm: NSR Interpretation: no acute changes Heart Score - Score History: Highly Suspicious EKG: Non Specific repolarisation Disturbance Age: Greater than 65 Risk Factors: Equal/Greater than 3 risk factor or history of atherosclerotic disease Troponin: Less than normal limit HEART Score Total: 7
[2017-05-01 11:34] LABS: Basophils # 0.1 K/mcL (0.0-0.2); Basophils % 0.9 %; Eosinophils # 0.1 K/mcL (0.0-0.6); Eosinophils % 1.2 %; Hematocrit 40.2 % (37.5-50.1); Hemoglobin 14.3 g/dL (12.9-16.9); Immature Granulocytes % 2.1 % (0-4); Lymphocytes # 1.3 K/mcL (0.6-4.6); Lymphocytes % 16.6 %; Mean Corpuscular HGB Conc 35.6 g/dL (31.6-35.5); Mean Corpuscular Hemoglobin 31.4 pg (28.0-33.3); Mean Corpuscular Volume 88.2 fL (83.0-100.0); Mean Platelet Volume 10.1 fL (9.4-12.4); Monocytes # 0.6 K/mcL (0.0-1.3); Monocytes % 7.6 %; Neutrophils # 5.6 K/mcL (1.6-8.9); Platelet Count 199 K/mcL (140-400); Red Blood Count 4.56 M/mcL (4.19-5.50); Red Cell Distribution Width 13.2 % (11.5-14.5); Segmented Neutrophils % 71.6 %
[2017-05-01 11:44] LABS: INR 1.1; Prothrombin Time 11.5 Seconds (9.4-12.1)
[2017-05-01 11:46] LABS: BUN/Creatinine Ratio 10 (6-26); Blood Urea Nitrogen 10 mg/dL (8-26); Calcium 9.4 mg/dL (8.6-10.8); Carbon Dioxide 22 mEq/L (19-29); Chloride 109 mEq/L (98-109); Glucose 95 mg/dL (70-99); Osmolality,Calculated 289 (280-300); Sodium 140 mEq/L (136-145); eGFR For African Americans > 60 (> 60); eGFR For Non-African Americans > 60 (> 60)
[2017-05-01 11:47] LABS: Activated Partial Thrombo Time 28.9 Seconds (26.0-36.0)
--- NOTE | 2017-05-01 15:20 | Cardiology Consult Note ---
Date of Encounter: 05/01/17 Time of Encounter: 15:20 Assessment and Plan (1) Chest pain Current Visit: Yes Status: Acute Per Cardiology: Initial troponin negative at 0.00. We'll continue to cycle troponins. Will increase long-acting nitrate to Imdur 60mg. Discussed with Dr. Esposito. Qualifiers: Chest pain type: unspecified Qualified Code(s): R07.9 - Chest pain, unspecified (2) Coronary artery disease Current Visit: No Status: Chronic Per Cardiology: Catheterization from March 2017 showed proximal LAD 30%, mid LAD 30%, ostial proximal circumflex 50-60% lesion, ostial right PDA 90% status post cutting balloon with residual stenosis of 20-30%, patent mid RCA stent with 30% in- stent restenosis. Recommend resuming aspirin, Plavix, statin, beta lissette, and ARB. Echo from April 2017 showed EF 60-65%, moderate diastolic dysfunction, no significant valvular dysfunction, mildly dilated right ventricle with normal function, NSWMA Qualifiers: Coronary Disease-Associated Artery/Lesion type: [place] artery [place] vs. transplanted heart: [place] heart Qualified Code(s): I25.10 - Atherosclerotic heart disease of [place] coronary artery without angina pectoris (3) PVCs (premature ventricular contractions) Current Visit: Yes Status: Acute Per Cardiology: Noted to have frequent PVCs during echocardiogram. Holter reviewed from today and showed average heart rate 60 with minimal 46 during nocturnal hours, 2 PVCs total with no significant events or pauses. We'll continue to monitor telemetry. Discussion w patient/family: The assessment and plan as outlined above was discussed with the patient and/or family members who expressed understanding and agreement. All questions were answered. Thank you for involving us in the care of your patient. Please call with any questions. History of Present Illness Consult date: 05/01/17 Requesting physician: Brendan Killian Consult reason: CP Chief complaint: KILLIAN, CP, Fatigue, Dizziness History of present illness: Mr. Morales is a 66 year old male I last saw during hospitalization April 2017 for recurrent chest pain. Patient has a relevant past surgical history of CAD, hypertension, hyperlipidemia, GERD, rheumatoid arthritis, and history of smokeless tobacco. History of negative nuclear stress test October 2015 at [facility] with recent abnormal nuclear stress test March 2017 at [place] showing mildly severe partially fixed, partially reversible perfusion defect involving distal anterior wall, apex, and distal inferior wall suspicious for ischemia. Patient had left heart catheterization March 31, 2017 with cutting balloon angioplasty to ostial proximal PDA 90% lesion with mild residual 20-30% stenosis. During recent hospitalization troponin is negative and patient started on long-acting nitrates. Patient saw cardiology for outpatient follow-up and had echo completed. Echo noted to show PVCs and patient reportedly completed Holter they turned in today. Patient reports after turning in Holter monitor developed acute onset of shortness of breath, chest pressure, radiation to his bilateral neck region, dizziness, and fatigue. reports paleness. He denied any palpitations, nausea, vomiting, syncope, falls. He denies any active bleeding or blood loss. Reports compliance with medications. Reports still taking long-acting nitrate Imdur 30 mg by mouth daily. He does indicate since last office visit he is utilizing nitroglycerin pills about once every 2-3 days for midsternal chest pressure at rest and with exertion. Past Med Surg Social Fam HX - Past Medical History Attestation: Yes The following information was validated with the patient. Source: patient, old records reviewed, obtained from family Medical history: arthritis, coronary artery disease, GERD, hyperlipidemia, hypertension, myocardial infarction, RA Psychiatric history: no psych history - Past Surgical History Surgical History: angioplasty/stent, appendectomy, cholecystectomy - Social History Smoking Status: Former smoker Smokeless Tobacco Status: Yes (1 pack chewing tobacco) Alcohol use: none Drug use: none - Family History Father Family Member Ethnicity: Non- Living Status: Hx Family Cardiac Disorders: Yes (HD, [place]) Hx Family Cancer: Yes (Lung) Mother Family Member Ethnicity: Non- Living Status: Hx Family Cardiac Disorders: Yes (HD, HTN) Hx Family Respiratory Disorders: No Hx Family Cancer: No Hx Family Endocrine Disorder: Yes (DM) Brother Family Member Ethnicity: Non- Living Status: Still Living Sister Family Member Ethnicity: Non- Living Status: Still Living Hx Family Cardiac Disorders: Yes (HD, Open heart surgery) Medications and Allergies Dexlansoprazole [Dexilant] 60 mg PO DAILY 03/31/17 [History] Ezetimibe [Zetia] 10 mg PO DAILY 03/31/17 [History] Folic Acid 2 mg PO DAILY 03/31/17 [History] Hydroxychloroquine [Plaquenuil] 400 mg PO DAILY 03/31/17 [History] Methotrexate [Otrexup] 20 mg PO SAMPSON 03/31/17 [History] Metoprolol XL (24 HR) Succ [Toprol Xl] 50 mg PO DAILY 03/31/17 [History] Nitroglycerin 0.4 mg PO Q5M PRN 03/31/17 [History] Olmesartan Medoxomil 40 mg PO DAILY 03/31/17 [History] Oxycodone HCl/Acetaminophen [Percocet 10-325 mg Tablet] 1 tab PO Q6H PRN [History] Rosuvastatin Calcium 20 mg PO HS 03/31/17 [History] Zolpidem [Ambien] 10 mg PO HS PRN 03/31/17 [History] amLODIPine [Norvasc] 5 mg PO DAILY 03/31/17 [History] Aspirin Enteric Coated [Aspirin EC] 81 mg PO DAILY #0 04/02/17 [Rx] Clopidogrel [Plavix] 75 mg PO DAILY #30 tablet 04/02/17 [Rx] Isosorbide MONOnitrate (24 HR) [Imdur] 30 mg PO DAILY #30 tab.er.24h 04/10/17 [ Rx] Escitalopram [Lexapro] 10 mg PO DAILY 05/01/17 [History] Allergies Penicillins [PCN] Allergy (Verified 04/09/17 16:06) Hives All Systems Review: A 10-system review of systems was performed and is negative for pertinent findings except as documented above in the HPI. - Constitutional Constitutional: fatigue - Cardiovascular Cardiovascular: as per HPI, chest pain at rest, chest pain with exertion, dyspnea on exertion, lightheadedness Physical Examination Vital Signs, Last 4 Hours Resp BP 05/01/17 15:06 16 155/87 General: Conversant, No Apparent Distress HEENT: Atraumatic, Normocephaly, Mucus Membranes Moist Neck: No JVD, Normal carotid pulses Cardiac: Reg Rate and Rhythm, Normal S1 and S2, No Murmur Lungs: Normal Breath Sounds, No Wheeze, Rales, Rhonchi Neuro: Alert and responsive, No focal deficits noted Abdomen: Soft, Non-Tender Skin: No rashes noted on visualized skin Musculoskeletal: No Chest Wall Tenderness Extremities: No Clubbing, No Cyanosis, No Edema, Normal Pulses Results 05/01/17 11:20 05/01/17 11:20 Laboratory Tests 05/01/17 05/01/17 05/01/17 11:20 11:20 11:20 Hgb 14.3 Hct 40.2 Plt Count 199 INR 1.1 Creatinine Est GFR (Non-Af Amer) Troponin I B-Natriuretic Peptide 50 05/01/17 05/01/17 11:20 11:20 Hgb Hct Plt Count INR Creatinine 0.97 Est GFR (Non-Af Amer) > 60 Troponin I 0.00 B-Natriuretic Peptide ITS Impressions Chest X-Ray 05/01/17 11:02 IMPRESSION: No acute cardiopulmonary disease D/ / Gaston Adams MD / Gaston Adams MD Interpreting Provider: Gaston Adams MD Neck CTA 05/01/17 11:15 IMPRESSION: No acute intracranial hemorrhage or mass effect. Unremarkable CTA of the head and neck. D/ / Boris Hess MD / Boris Hess MD Interpreting Provider: Boris Hess MD Angiography CT 05/01/17 11:16 IMPRESSION: No acute intracranial hemorrhage or mass effect. Unremarkable CTA of the head and neck. D/ / Boris Hess MD / Boris Hess MD Interpreting Provider: Boris Hess MD - Imaging and Cardiology Echo: report reviewed Cardiac cath: report reviewed - EKG Interpretation EKG results cardiology: personally reviewed (Sinus bradycardia 50's), normal ECG , no diagnostic ischemia Consult Discharge Plan - Plan Referrals: Sebastian Stockton MD [Primary Care Provider] -
[2017-05-01] MEDS ORDERED: Isosorbide MONOnitrate (24 HR) 60 MG TAB.ER.24H PO SCH (16:00)
[2017-05-01] MEDS ORDERED: Naloxone 0.4 MG/ML INJ IVP PRN (16:30)
[2017-05-01] MEDS ORDERED: Acetaminophen 325 MG TABLET PO PRN (16:30)
[2017-05-01] MEDS ORDERED: *HR* OxyCODONE/APAP 10/325 TABLET PO PRN (16:38)
[2017-05-01] MEDS ORDERED: Nitroglycerin 0.4 MG TAB.SUBL SL PRN (16:38)
--- NOTE | 2017-05-01 17:00 | Internal Med History&Physical ---
<Adilene Adler M - Last Filed: 05/01/17 22:40> Date of Encounter: 05/01/17 Time of Encounter: 16:46 Assessment and Plan (1) Chest pain Current visit: Yes Status: Acute Patient presented with chest pressure, shortness of breath on exertion and lightheadedness. Patient with known CAD and recent Cardiac Cath in March 2017 showing 90% lesion in the PDA which was ballooned, but not stented. EKG showed no acute changes, and bradycardia. Troponin negative at 0.00 Nitro SL prn for chest pain continuous monitoring coordinator serial troponins Cardiology consulted and increased imdur to 60mg daily NPO after midnight for possible cardiac cath. Qualifiers: Chest pain type: chest pain due to myocardial ischemia Ischemic chest pain type: stable angina pectoris Qualified Code(s): I20.8 - Other forms of angina pectoris (2) Bradycardia Current visit: Yes Status: Acute Patient's heart rate 40s-50s on presentation. Patient recently completed a jiang monitor and results reportedly with average HR of 60. Continuous monitoring coordinator cardiology consulted. (3) Coronary artery disease Current visit: Yes Status: Chronic Patient with known CAD s/p stents and recent LHC showing 90% lesion in PDA which was ballooned. Continue aspirin, plavix, statin, and beta lissette. Qualifiers: Coronary Disease-Associated Artery/Lesion type: [place] artery [place] vs. transplanted heart: [place] heart Associated angina: with unstable angina Qualified Code(s): I25.110 - Atherosclerotic heart disease of [place] coronary artery with unstable angina pectoris (4) Sleep apnea Current visit: No Status: Chronic Respiratory therapy consulted for CPAP. Qualifiers: Sleep apnea type: unspecified type Qualified Code(s): G47.30 - Sleep apnea , unspecified (5) DVT prophylaxis Current visit: Yes Status: Acute anti-embolic stockings Lovenox 40mg SQ daily Internal Medicine - H&P: HPI Chief complaint: chest pain Admitted From: Emergency Dept Plans for Post Hospital Care: Home History of present illness: Mr. Morales is a 66 year old male with hypertension, hyperlipidemia, rheumatoid arthritis, sleep apnea, coronary artery disease status post stent placements presented to the emergency department today with complaints of chest pain. Patient was wearing a Holter monitor for 24 hours and was dropping this off in his ldr rn's office when he had sudden onset of chest pain with shortness of breath along with lightheadedness while walking. Patient describes the pain as severe pressure in the center of his chest, nonradiating. Pain was somewhat relieved by rest and aspirin given in the emergency department. He reports he also felt lightheaded during the episode. He denies any headache, cough, fever , chills or sweats. He denies any nausea or vomiting. Denies any abdominal pain. He denies any diaphoresis during the episode. He reports he has been having chest pain almost every day for which he takes SL nitro. Today's episode was worse than usual. He had a LHC in March which showed 90% lesion in the PDA which they ballooned, but stent was not possible. Evaluation in the ED included troponin which was negative at 0.00, EKG showed no changes from previous. CXR showed no acute cardiopulmonary disease. Patient was found to be bradycardic with HR 40s-50s. Cardiology was consulted and have increased his imdur to 60mg daily, and may consider another LHC tomorrow. On exam, patient alert and oriented in no acute distress. Heart has regular, bradycardic rhythm, lungs clear bilaterally to auscultation, no peripheral edema. Past Med Surg Social Fam HX - Past Medical History Medical history: arthritis, coronary artery disease, GERD, hyperlipidemia, hypertension, myocardial infarction, RA Psychiatric history: no psych history - Past Surgical History Surgical History: angioplasty/stent, appendectomy, cholecystectomy - Social History Smoking Status: Former smoker Smokeless Tobacco Status: Yes (1 pack chewing tobacco) Alcohol use: none Drug use: none - Family History Father Family Member Ethnicity: Non- Living Status: Hx Family Cardiac Disorders: Yes (HD, [place]) Hx Family Cancer: Yes (Lung) Mother Family Member Ethnicity: Non- Living Status: Hx Family Cardiac Disorders: Yes (HD, HTN) Hx Family Respiratory Disorders: No Hx Family Cancer: No Hx Family Endocrine Disorder: Yes (DM) Brother Family Member Ethnicity: Non- Living Status: Still Living Sister Family Member Ethnicity: Non- Living Status: Still Living Hx Family Cardiac Disorders: Yes (HD, Open heart surgery) Internal Medicine - H&P: Meds Dexlansoprazole [Dexilant] 60 mg PO DAILY 03/31/17 [History] Ezetimibe [Zetia] 10 mg PO DAILY 03/31/17 [History] Folic Acid 2 mg PO DAILY 03/31/17 [History] Hydroxychloroquine [Plaquenuil] 400 mg PO DAILY 03/31/17 [History] Methotrexate [Otrexup] 20 mg PO SAMPSON 03/31/17 [History] Metoprolol XL (24 HR) Succ [Toprol Xl] 50 mg PO DAILY 03/31/17 [History] Nitroglycerin 0.4 mg PO Q5M PRN 03/31/17 [History] Olmesartan Medoxomil 40 mg PO DAILY 03/31/17 [History] Oxycodone HCl/Acetaminophen [Percocet 10-325 mg Tablet] 1 tab PO Q6H PRN [History] Rosuvastatin Calcium 20 mg PO HS 03/31/17 [History] Zolpidem [Ambien] 10 mg PO HS PRN 03/31/17 [History] amLODIPine [Norvasc] 5 mg PO DAILY 03/31/17 [History] Aspirin Enteric Coated [Aspirin EC] 81 mg PO DAILY #0 04/02/17 [Rx] Clopidogrel [Plavix] 75 mg PO DAILY #30 tablet 04/02/17 [Rx] Isosorbide MONOnitrate (24 HR) [Imdur] 30 mg PO DAILY #30 tab.er.24h 04/10/17 [ Rx] Escitalopram [Lexapro] 10 mg PO DAILY 05/01/17 [History] Allergies Penicillins [PCN] Allergy (Verified 04/09/17 16:06) Hives All Systems PM: A 10-system review of systems was performed and is negative for pertinent findings except as documented above in the HPI. - Constitutional Constitutional: no chills, no fever(s), no night sweats - EENT Eyes: no change in vision, no discharge, no pain, no photophobia Ears: no ear discharge, no ear pain, no tinnitus Nose, mouth and throat: no dysphagia, no nasal discharge, no neck pain, no sore throat - Cardiovascular Cardiovascular ROS IM: chest pain, dyspnea on exertion, lightheadedness, palpitations, no diaphoresis, no dyspnea, no syncope - Respiratory Respiratory: dyspnea on exertion, no cough, no dyspnea, no wheezing, no excessive phlegm production - Gastrointestinal Gastrointestinal: no abdominal pain, no diarrhea, no hematemesis, no hematochezia, no melena, no nausea, no vomiting - Musculoskeletal Musculoskeletal ROS IM: no numbness, no tingling - Integumentary Integumentary IM: no rash, no unusual bruising - Neurological Neurological ROS: no confusion, no convulsions, no focal weakness, no numbness, no tingling, no tremor(s) - Hematologic/Lymphatic Hematologic/Lymphatic: no easy bruising - Constitutional Vitals: Temp Pulse Resp BP Pulse Ox 97.6 F 47 14 124/71 97 05/01/17 16:36 05/01/17 16:36 05/01/17 16:36 05/01/17 16:36 05/01/17 16:36 General appearance: Present: A&O X 3, pleasant, no acute distress - Head Head exam: Present: atraumatic, normocephalic - Eye Eye exam: Present: PERRL, conjuntiva pink, sclera anicteric Pupils: Present: PERRL - Neck Neck exam general surgery: Present: supple, trachea midline. Absent: lymphadenopathy - Respiratory Respiratory exam: Present: CTAB. Absent: accessory muscle use, rales, rhonchi, wheezes - Cardiovascular Cardiovascular exam: Present: RRR, +S1, +S2. Absent: diastolic murmur, gallop, rubs, systolic murmur - GI/Abdominal GI/Abdominal exam: Present: normal bowel sounds, soft, no peritoneal signs. Absent: distended, tenderness - Extremities Exam Extremities exam: Present: warm, radial pulses palpable and symetrical. Absent : calf tenderness, cyanotic, pedal edema - Neurological Exam Neurological exam: Present: CN II-XII intact, oriented X3, no focal deficits. Absent: facial droop, speech deficit - Skin Skin exam: Present: dry, intact Internal Med - H&P Results - Labs CBC & Chem 7: 05/01/17 11:20 05/01/17 11:20 Labs: All Lab Results (24 Hours) 05/01/17 05/01/17 05/01/17 Range/Units 11:20 11:20 11:20 WBC 7.8 (4.3-11.1) K/mcL RBC 4.56 (4.19-5.50) M/mcL Hgb 14.3 (12.9-16.9) g/dL Hct 40.2 (37.5-50.1) % MCV 88.2 (83.0-100.0) fL MCH 31.4 (28.0-33.3) pg MCHC 35.6 H (31.6-35.5) g/dL RDW 13.2 (11.5-14.5) % Plt Count 199 (140-400) K/mcL MPV 10.1 (9.4-12.4) fL Immature Gran % 2.1 (0-4) % Seg Neutrophils % 71.6 % Lymphocytes % 16.6 % Monocytes % 7.6 % Eosinophils % 1.2 % Basophils % 0.9 % Neutrophils # 5.6 (1.6-8.9) K/mcL Lymphocytes # 1.3 (0.6-4.6) K/mcL Monocytes # 0.6 (0.0-1.3) K/mcL Eosinophils # 0.1 (0.0-0.6) K/mcL Basophils # 0.1 (0.0-0.2) K/mcL PT 11.5 (9.4-12.1) Seconds INR 1.1 APTT 28.9 (26.0-36.0) Seconds Sodium (136-145) mEq/L Potassium (3.5-4.5) mEq/L Chloride (98-109) mEq/L Carbon Dioxide (19-29) mEq/L BUN (8-26) mg/dL Creatinine (0.72-1.25) mg/dL Est GFR ( Amer) (> 60) Est GFR (Non-Af Amer) (> 60) BUN/Creatinine Ratio (6-26) Glucose (70-99) mg/dL Calculated Osmolality (280-300) Calcium (8.6-10.8) mg/dL Troponin I (0-0.03) ng/mL B-Natriuretic Peptide 50 (0-100) pg/mL 05/01/17 05/01/17 Range/Units 11:20 11:20 WBC (4.3-11.1) K/mcL RBC (4.19-5.50) M/mcL Hgb (12.9-16.9) g/dL Hct (37.5-50.1) % MCV (83.0-100.0) fL MCH (28.0-33.3) pg MCHC (31.6-35.5) g/dL RDW (11.5-14.5) % Plt Count (140-400) K/mcL MPV (9.4-12.4) fL Immature Gran % (0-4) % Seg Neutrophils % % Lymphocytes % % Monocytes % % Eosinophils % % Basophils % % Neutrophils # (1.6-8.9) K/mcL Lymphocytes # (0.6-4.6) K/mcL Monocytes # (0.0-1.3) K/mcL Eosinophils # (0.0-0.6) K/mcL Basophils # (0.0-0.2) K/mcL PT (9.4-12.1) Seconds INR APTT (26.0-36.0) Seconds Sodium 140 (136-145) mEq/L Potassium 4.0 (3.5-4.5) mEq/L Chloride 109 (98-109) mEq/L Carbon Dioxide 22 (19-29) mEq/L BUN 10 (8-26) mg/dL Creatinine 0.97 (0.72-1.25) mg/dL Est GFR ( Amer) > 60 (> 60) Est GFR (Non-Af Amer) > 60 (> 60) BUN/Creatinine Ratio 10 (6-26) Glucose 95 (70-99) mg/dL Calculated Osmolality 289 (280-300) Calcium 9.4 (8.6-10.8) mg/dL Troponin I 0.00 (0-0.03) ng/mL B-Natriuretic Peptide (0-100) pg/mL - Diagnostic Studies Chest x-ray Additional comments: Chest X-Ray 05/01/17 11:02 IMPRESSION: No acute cardiopulmonary disease D/ / Gaston Adams MD / Gaston Adams MD Interpreting Provider: Gaston Adams MD Neck CTA 05/01/17 11:15 IMPRESSION: No acute intracranial hemorrhage or mass effect. Unremarkable CTA of the head and neck. D/ / Boris Hess MD / Boris Hess MD Interpreting Provider: Boris Hess MD Angiography CT 05/01/17 11:16 IMPRESSION: No acute intracranial hemorrhage or mass effect. Unremarkable CTA of the head and neck. D/ / Boris Hess MD / Boris Hess MD Interpreting Provider: Boris Hess MD <Amna Shaffer - Last Filed: 05/02/17 08:32> Date of Encounter: 05/02/17 Internal Medicine - H&P: HPI History of present illness: Mr. Morales is a 66 year old male All Systems PM: A 10-system review of systems was performed and is negative for pertinent findings except as documented above in the HPI. - Constitutional Vitals: Temp Pulse Resp BP Pulse Ox 98.3 F 50 16 122/71 96 05/02/17 07:19 05/02/17 07:19 05/02/17 07:19 05/02/17 07:19 05/02/17 07:19 Internal Med - H&P Results - Labs CBC & Chem 7: 05/02/17 03:50 05/02/17 03:50 Labs: Short CBC 05/02/17 Range/Units 03:50 WBC 7.1 (4.3-11.1) K/mcL Hgb 13.1 (12.9-16.9) g/dL Hct 38.0 (37.5-50.1) % Plt Count 167 (140-400) K/mcL Neutrophils # 4.5 (1.6-8.9) K/mcL BMP 05/02/17 03:50 Sodium 140 Potassium 4.2 Chloride 108 Carbon Dioxide 26 BUN 17 Creatinine 0.90 Glucose 96 Calcium 8.7 Cardiac Enzymes 05/01/17 05/02/17 Range/Units 21:46 03:50 Troponin I 0.00 0.00 (0-0.03) ng/mL - Attending Attestation I have personally performed a face to face evaluation on this patient and I discussed the assessment and plan with the nurse practitioner. I have reviewed and agree with the documented care plan. History and Exam by me shows: Mr. Morales is a 66 year old male with hypertension, hyperlipidemia, rheumatoid arthritis, sleep apnea, coronary artery disease status post stent placements presented to the emergency department today with complaints of chest pain. Patient was wearing a Holter monitor for 24 hours and was dropping this off in his ldr rn's office when he had sudden onset of chest pain with shortness of breath along with lightheadedness while walking. Patient describes the pain as severe pressure in the center of his chest, nonradiating. He had a LHC in March which showed 90% lesion in the PDA which they ballooned. Gen: A, A, O X 3 Chest: Diminished BS b/l basal regions, NO rales / ronchi Heart; S1 S2 + RRR No murmurs a/p 1. Acute chest pain 2. h/o CAD s/p stents 3. Recent LHC - 90 % lesion of PDA Cont on tele serial troponin agree with titrating his medical management -- increasing Imdur to 60mg Will defer to ldr rn regarding anticoag choice mean while cont ASA and Plavix Due to his bradycardia..we may need to cut back on his Metoprolol dose I am not sure his frequent chest pains are due to bradycardia too 4. Severe NATHANIEL and Morbid Obesity counseled to loose weight requested to go for out pt sleep studies
[2017-05-02 04:10] LABS: Basophils # 0.1 K/mcL (0.0-0.2); Eosinophils # 0.1 K/mcL (0.0-0.6); Eosinophils % 1.7 %; Hemoglobin 13.1 g/dL (12.9-16.9); Immature Granulocytes % 2.4 % (0-4); Lymphocytes # 1.5 K/mcL (0.6-4.6); Lymphocytes % 21.8 %; Mean Corpuscular HGB Conc 34.5 g/dL (31.6-35.5); Mean Corpuscular Hemoglobin 30.8 pg (28.0-33.3); Mean Corpuscular Volume 89.4 fL (83.0-100.0); Mean Platelet Volume 10.1 fL (9.4-12.4); Monocytes # 0.7 K/mcL (0.0-1.3); Monocytes % 9.2 %; Neutrophils # 4.5 K/mcL (1.6-8.9); Platelet Count 167 K/mcL (140-400); Red Blood Count 4.25 M/mcL (4.19-5.50); Red Cell Distribution Width 13.2 % (11.5-14.5); Segmented Neutrophils % 63.9 %
[2017-05-02 04:22] LABS: BUN/Creatinine Ratio 19 (6-26); Blood Urea Nitrogen 17 mg/dL (8-26); Calcium 8.7 mg/dL (8.6-10.8); Carbon Dioxide 26 mEq/L (19-29); Chloride 108 mEq/L (98-109); Glucose 96 mg/dL (70-99); Osmolality,Calculated 291 (280-300); Potassium 4.2 mEq/L (3.5-4.5); Sodium 140 mEq/L (136-145); eGFR For African Americans > 60 (> 60); eGFR For Non-African Americans > 60 (> 60)
[2017-05-02] MEDS ORDERED: Metoprolol XL (24 HR) Succ 50 MG TAB.ER.24H PO SCH (09:00)
[2017-05-02] MEDS ORDERED: Isosorbide MONOnitrate (24 HR) 30 MG TAB.ER.24H PO SCH ×2 (10:16→11:47)
[2017-05-02] MEDS ORDERED: Metoprolol XL (24 HR) Succ 25 MG TAB.ER.24H PO SCH (10:17)
--- NOTE | 2017-05-02 10:17 | Cardiology Progress Note ---
Date of Encounter: 05/02/17 Time of Encounter: 10:00 Assessment and Plan (1) Chest pain Current Visit: Yes Status: Acute Per Cardiology: Trops 0.00 x 3. Currently chest pain-free. Qualifiers: Chest pain type: unspecified Qualified Code(s): R07.9 - Chest pain, unspecified (2) Coronary artery disease Current Visit: Yes Status: Chronic Per Cardiology: Catheterization from March 2017 showed proximal LAD 30%, mid LAD 30%, ostial proximal circumflex 50-60% lesion, ostial right PDA 90% status post cutting balloon with residual stenosis of 20-30%, patent mid RCA stent with 30% in- stent restenosis. On aspirin, Plavix, statin, beta lissette, and ARB. Echo from April 2017 showed EF 60-65%, moderate diastolic dysfunction, no significant valvular dysfunction, mildly dilated right ventricle with normal function, NSWMA. Cath films reviewed and discussed with Dr. Gutierrez, recs to titrate long acting nitrate-- will increase to 90mg PO daily. Dr. Gutierrez will evaluate and discuss with patient and -- they are inquiring into repeat [facility]. Qualifiers: Coronary Disease-Associated Artery/Lesion type: [place] artery [place] vs. transplanted heart: [place] heart Associated angina: with unstable angina Qualified Code(s): I25.110 - Atherosclerotic heart disease of [place] coronary artery with unstable angina pectoris (3) PVCs (premature ventricular contractions) Current Visit: Yes Status: Acute Per Cardiology: Noted to have frequent PVCs during echocardiogram. Holter reviewed from and showed average heart rate 60 with minimal 46 during nocturnal hours, 2 PVCs total with no significant events or pauses. Telemetry reviewed with no significant events. (4) Bradycardia Current Visit: Yes Status: Acute Per Cardiology: Currently sinus bradycardia in the 50s average heart rate 50. Average heart rate on recent Holter = 60. Will decrease Toprol from 50 mg by mouth daily to 25 mg by mouth daily and monitor heart rate. Discussion w patient/family: The assessment and plan as outlined above was discussed with the patient and/or family members who expressed understanding and agreement. All questions were answered. Thank you for involving us in the care of your patient. Please call with any questions. Subjective Principal diagnosis: CP Interval history: Patient reports one episode of chest aching yesterday evening resolved on its own accord. He denies any shortness of breath or palpitations. Denies any other concerns at this time. Objective Vital Signs, Last 4 Hours Temp Pulse Resp BP Pulse Ox 05/02/17 07:19 98.3 F 50 16 122/71 96 General: Conversant, No Apparent Distress HEENT: Atraumatic, Normocephaly, Mucus Membranes Moist Neck: No JVD, Normal carotid pulses Cardiac: Reg Rate and Rhythm, Normal S1 and S2, No Murmur Lungs: Normal Breath Sounds, No Wheeze, Rales, Rhonchi Neuro: Alert and responsive, No focal deficits noted Abdomen: Soft, Non-Tender Skin: No rashes noted on visualized skin Musculoskeletal: No Chest Wall Tenderness Extremities: No Clubbing, No Cyanosis, No Edema, Normal Pulses Results 05/02/17 03:50 05/02/17 03:50 Lab Results Laboratory Tests 05/01/17 05/01/17 05/02/17 11:20 21:46 03:50 Troponin I 0.00 0.00 0.00 ITS Impressions Chest X-Ray 05/01/17 11:02 IMPRESSION: No acute cardiopulmonary disease D/ / Gaston Adams MD / Gaston Adams MD Interpreting Provider: Gasotn Adams MD Neck CTA 05/01/17 11:15 IMPRESSION: No acute intracranial hemorrhage or mass effect. Unremarkable CTA of the head and neck. D/ / Boris Hess MD / Boris Hess MD Interpreting Provider: Boris Hess MD Angiography CT 05/01/17 11:16 IMPRESSION: No acute intracranial hemorrhage or mass effect. Unremarkable CTA of the head and neck. D/ / Boris Hess MD / Boris Hess MD Interpreting Provider: Boris Hess MD Active Medications Acetaminophen (Tylenol) 650 mg PO Q6HR PRN PRN Reason: Mild Pain (1-3) Stop: 10/31/17 16:31 Amlodipine Besylate (Norvasc) 5 mg PO DAILY CAL PRN Reason: Protocol Stop: 11/01/17 09:01 Aspirin (Aspirin Ec) 81 mg PO DAILY [facility] Stop: 11/01/17 09:01 Clopidogrel Bisulfate (Plavix) 75 mg PO DAILY [facility] Stop: 11/01/17 09:01 Docusate Sodium (Colace) 100 mg PO BID PRN PRN Reason: Constipation Stop: 10/31/17 16:31 Escitalopram Oxalate (Lexapro) 10 mg PO DAILY [facility] Stop: 11/01/17 09:01 Folic Acid (Folic Acid) 2 mg PO DAILY [facility] Stop: 11/01/17 09:01 Hydroxychloroquine Sulfate (Plaquenuil) 400 mg PO DAILY [facility] Stop: 11/01/17 09:01 Isosorbide Mononitrate (Imdur) 60 mg PO DAILY [facility] Stop: 10/31/17 16:01 Last Admin: 05/01/17 16:29 Dose: 60 mg Metoprolol Succinate (Toprol Xl) 50 mg PO DAILY [facility] Stop: 11/01/17 09:01 Naloxone HCl (Narcan) 0.4 mg IVP Q2MIN PRN PRN Reason: Opioid Reversal Stop: 10/31/17 16:31 Nitroglycerin (Nitroglycerin) 0.4 mg SL Q5M PRN PRN Reason: Chest Pain Stop: 10/31/17 16:39 (Dexlansoprazole [ (Dexilant] 60 Mg)) 60 mg PO DAILY [facility] Stop: 11/01/17 09:01 (Ezetimibe [Zetia] (10 Mg)) 10 mg PO DAILY [facility] Stop: 11/01/17 09:01 Oxycodone/Acetaminophen (Percocet 10/325) 1 each PO Q6H PRN PRN Reason: Moderate Pain Stop: 10/31/17 16:39 Rosuvastatin Calcium (Crestor) 20 mg PO HS [facility] Stop: 10/31/17 21:01 Last Admin: 05/01/17 21:56 Dose: Not Given Valsartan (Diovan) 320 mg PO DAILY [facility] Stop: 11/01/17 09:01 Zolpidem Tartrate (Ambien) 10 mg PO HS PRN; Protocol PRN Reason: Sleep Stop: 10/31/17 16:39 - EKG Interpretation EKG results cardiology: other (Telemetry reviewed the past 24 hours avg HR = 50 , sinus bradycardia with occasional PACs and PVCs) Consult Discharge Plan - Plan Referrals: Sebastian Stockton MD [Primary Care Provider] -
[2017-05-02] MEDS: Valsartan 160 MG TABLET PO SCH (10:38)
[2017-05-02] MEDS: amLODIPine 5 MG TABLET PO SCH (10:38)
[2017-05-02] MEDS: Folic Acid 1 MG TABLET PO SCH (10:39)
[2017-05-02] MEDS: Aspirin Enteric Coated 81 MG Tablet PO SCH (10:40)
[2017-05-02] MEDS: (Dexlansoprazole [Dexilant] 60 MG) PO SCH (10:49)
[2017-05-02] MEDS: (Ezetimibe [Zetia] 10 MG) PO SCH (10:49)
[2017-05-02] MEDS: Budesonide/Formoterol 160/4.5 MDI IH SCH ×2 (16:14→22:38)
--- NOTE | 2017-05-02 19:30 | Internal Med Progress Note ---
Date of Encounter: 05/02/17 Time of Encounter: 18:15 - Assessment and plan (1) Chest pain Current Visit: Yes Status: Acute Assessment and plan: Patient currently denies chest pain. Chest x-ray negative. Neck CTA unremarkable. Cardiology is on board. Troponins negative 3. Per cardiology, initial plan is to treat medically with an increase in his Imdur however the patient and are requesting a repeat left heart catheter. Per cardiology, we will observe the patient after he has been given appropriate bronchodilator medication as well as increasing his Imdur. If his symptoms continue, possible left heart catheter on Thursday. Patient and aware of plan. ITS Impressions Chest X-Ray 05/01/17 11:02 IMPRESSION: No acute cardiopulmonary disease D/ / Gaston Adams MD / Gaston Adams MD Interpreting Provider: Gaston Adams MD Neck CTA 05/01/17 11:15 IMPRESSION: No acute intracranial hemorrhage or mass effect. Unremarkable CTA of the head and neck. D/ / Boris Hess MD / Boris Hess MD Interpreting Provider: Boris Hess MD Angiography CT 05/01/17 11:16 IMPRESSION: No acute intracranial hemorrhage or mass effect. Unremarkable CTA of the head and neck. D/ / Boris Hess MD / Boris Hess MD Interpreting Provider: Boris Hess MD Qualifiers: Chest pain type: chest pain due to myocardial ischemia Ischemic chest pain type: stable angina pectoris Qualified Code(s): I20.8 - Other forms of angina pectoris (2) Quit using tobacco in remote past Current Visit: Yes Status: Chronic Assessment and plan: Patient stating he stopped smoking in 2006 when he had his heart attack. He states he believes that he has COPD/asthma but has never been formally diagnosed. On examination, respirations are even and easy and unlabored however his breath sounds are decreased bilaterally, will add Symbicort and albuterol and assess his response. (3) SOB (shortness of breath) Current Visit: No Status: Acute Assessment and plan: See prior note for quit smoking (4) Hypertension Current Visit: No Status: Chronic Assessment and plan: Controlled, we will continue to trend and adjust medications as indicated Qualifiers: Hypertension type: essential hypertension Qualified Code(s): I10 - Essential (primary) hypertension (5) Coronary artery disease Current Visit: Yes Status: Chronic Qualifiers: Coronary Disease-Associated Artery/Lesion type: [place] artery [place] vs. transplanted heart: [place] heart Associated angina: with unstable angina Qualified Code(s): I25.110 - Atherosclerotic heart disease of [place] coronary artery with unstable angina pectoris (6) Rheumatoid arthritis Current Visit: No Status: Chronic (7) DVT prophylaxis Current Visit: Yes Status: Acute Assessment and plan: Subcutaneous heparin ordered (8) GERD (gastroesophageal reflux disease) Current Visit: No Status: Chronic Assessment and plan: Denies current symptoms Qualifiers: Esophagitis presence: esophagitis presence not specified Qualified Code(s) : K21.9 - Gastro-esophageal reflux disease without esophagitis (9) Sleep apnea Current Visit: No Status: Chronic Assessment and plan: Endorses compliance with CPAP Qualifiers: Sleep apnea type: unspecified type Qualified Code(s): G47.30 - Sleep apnea , unspecified (10) PVCs (premature ventricular contractions) Current Visit: Yes Status: Chronic Assessment and plan: Noted during echo, cardiology on board (11) Bradycardia Current Visit: Yes Status: Acute Assessment and plan: Cardiology on board, recent Holter monitor. Decreasing Toprol - Subjective Interval history: Patient seen and examined. On examination, patient was ambulating around his room. He denied chest pain or shortness of breath at this time. - Constitutional Vitals: Temp Pulse Resp BP Pulse Ox 98.1 F 62 16 127/76 96 05/02/17 19:04 05/02/17 19:04 05/02/17 19:04 05/02/17 19:04 05/02/17 19:04 General appearance: Present: A&O X 3, pleasant, no acute distress, answers questions appropriately - Head Head exam: Present: atraumatic, normocephalic - Eye Eye exam: Present: PERRL, conjuntiva pink, sclera anicteric Pupils: Present: PERRL - Neck Neck exam general surgery: Present: supple, trachea midline. Absent: lymphadenopathy - Respiratory Respiratory exam: Present: decreased breath sounds. Absent: accessory muscle use, rales, respiratory distress, rhonchi, wheezes - Cardiovascular Cardiovascular exam: Present: RRR, +S1, +S2. Absent: diastolic murmur, gallop, rubs, systolic murmur - GI/Abdominal GI/Abdominal exam: Present: normal bowel sounds, soft, no peritoneal signs. Absent: distended, tenderness - Extremities Exam Extremities exam: Present: warm, radial pulses palpable and symetrical. Absent : calf tenderness, cyanotic, pedal edema - Neurological Exam Neurological exam: Present: alert, CN II-XII intact, normal gait, oriented X3, no focal deficits, strengths equal and symetr throughout. Absent: pronater drift, facial droop, speech deficit - Skin Skin exam: Present: dry, intact, normal color, warm Internal Medicine: Result - Labs CBC & Chem 7: 05/02/17 03:50 05/02/17 03:50 Labs: Short CBC 05/02/17 Range/Units 03:50 WBC 7.1 (4.3-11.1) K/mcL Hgb 13.1 (12.9-16.9) g/dL Hct 38.0 (37.5-50.1) % Plt Count 167 (140-400) K/mcL Neutrophils # 4.5 (1.6-8.9) K/mcL BMP 05/02/17 03:50 Sodium 140 Potassium 4.2 Chloride 108 Carbon Dioxide 26 BUN 17 Creatinine 0.90 Glucose 96 Calcium 8.7 Cardiac Enzymes 05/01/17 05/02/17 Range/Units 21:46 03:50 Troponin I 0.00 0.00 (0-0.03) ng/mL - ABG Interpretation ABG results: PT/INR, D-dimer PT 11.5 Seconds (9.4-12.1) 05/01/17 11:20 Consult Discharge Plan - Plan Referrals: Sebastian Stockton MD [Primary Care Provider] -
[2017-05-03] MEDS ORDERED: *HR* Heparin 5,000 UNIT/ML VIAL SQ SCH (06:00)
[2017-05-03 07:44] VITALS: BP 149/77
[2017-05-03] MEDS: Budesonide/Formoterol 160/4.5 MDI IH SCH (08:25)
[2017-05-03] MEDS: amLODIPine 5 MG TABLET PO SCH (09:06)
[2017-05-03] MEDS: Aspirin Enteric Coated 81 MG Tablet PO SCH (09:06)
[2017-05-03] MEDS: Valsartan 160 MG TABLET PO SCH (09:06)
[2017-05-03] MEDS: Folic Acid 1 MG TABLET PO SCH (09:07)
[2017-05-03] MEDS: (Dexlansoprazole [Dexilant] 60 MG) PO SCH (09:07)
[2017-05-03] MEDS: (Ezetimibe [Zetia] 10 MG) PO SCH (09:10)
--- NOTE | 2017-05-03 09:28 | Cardiology Progress Note ---
Date of Encounter: 05/03/17 Time of Encounter: 08:15 Assessment and Plan (1) Chest pain Current Visit: Yes Status: Acute Per Cardiology: Trops 0.00 x 3. Currently chest pain-free. Qualifiers: Chest pain type: unspecified Qualified Code(s): R07.9 - Chest pain, unspecified (2) Coronary artery disease Current Visit: Yes Status: Chronic Per Cardiology: Catheterization from March 2017 showed proximal LAD 30%, mid LAD 30%, ostial proximal circumflex 50-60% lesion, ostial right PDA 90% status post cutting balloon with residual stenosis of 20-30%, patent mid RCA stent with 30% in- stent restenosis. On aspirin, Plavix, statin, beta lissette, and ARB. Echo from April 2017 showed EF 60-65%, moderate diastolic dysfunction, no significant valvular dysfunction, mildly dilated right ventricle with normal function, NSWMA. Cath films reviewed and discussed with maryellen Logan to titrate long acting nitrate. Improved today with Imdur 120mg PO daily, decreased dose of BB, and inhalers. Patient and agreeable to f/u as outpatient, f/u scheduled, will s/o, re-consult PRN. Qualifiers: Coronary Disease-Associated Artery/Lesion type: [place] artery [place] vs. transplanted heart: [place] heart Associated angina: with unstable angina Qualified Code(s): I25.110 - Atherosclerotic heart disease of [place] coronary artery with unstable angina pectoris (3) PVCs (premature ventricular contractions) Current Visit: Yes Status: Chronic Per Cardiology: Noted to have frequent PVCs during echocardiogram. Holter reviewed from and showed average heart rate 60. Current tele with avg 61 with no significant events or pauses. (4) Bradycardia Current Visit: Yes Status: Acute Per Cardiology: Currently sinus bradycardia in the 60s average heart rate 61 past 12 hrs. Average heart rate on recent Holter = 60. HR better with Toprol XL 25 mg PO daily. Discussion w patient/family: The assessment and plan as outlined above was discussed with the patient and/or family members who expressed understanding and agreement. All questions were answered. Thank you for involving us in the care of your patient. Please call with any questions. Subjective Principal diagnosis: CP Interval history: Patient and deny any new concerns or complaints. He denies any chest pain overnight. Reports ambulating hallway without any chest pain, short of breath, palpitations, or dizziness. Objective Vital Signs, Last 4 Hours Temp Pulse Resp BP Pulse Ox 05/03/17 07:43 98.1 F 55 15 149/77 94 General: Conversant, No Apparent Distress HEENT: Atraumatic, Normocephaly, Mucus Membranes Moist Neck: No JVD, Normal carotid pulses Cardiac: Reg Rate and Rhythm, Normal S1 and S2, No Murmur Lungs: Normal Breath Sounds, No Wheeze, Rales, Rhonchi Neuro: Alert and responsive, No focal deficits noted Abdomen: Soft, Non-Tender Skin: No rashes noted on visualized skin Musculoskeletal: No Chest Wall Tenderness Extremities: No Clubbing, No Cyanosis, No Edema, Normal Pulses Results 05/02/17 03:50 05/02/17 03:50 - EKG Interpretation EKG results cardiology: other (tele with avg HR 61, no events noted) Consult Discharge Plan - Plan Referrals: Sebastian Stockton MD [Primary Care Provider] - (Call Office to make a follow up appointment)
--- NOTE | 2017-05-03 11:06 | Discharge Summary ---
Date of Encounter: 05/03/17 Time of Encounter: 10:45 - Discharge Diagnosis (1) Chest pain Priority: Primary Status: Resolved Comments: responded to medical management. followup outpatient. Qualifiers: Chest pain type: chest pain due to myocardial ischemia Ischemic chest pain type: stable angina pectoris Qualified Code(s): I20.8 - Other forms of angina pectoris (2) Quit using tobacco in remote past Priority: Secondary Status: Chronic Comments: Patient stating he stopped smoking in 2006 when he had his heart attack. He states he believes that he has COPD/asthma but has never been formally diagnosed. On examination, respirations are even and easy and unlabored however his breath sounds were decreased bilaterally, so Symbicort and albuterol were added to his regimen and his aeration improved. (3) SOB (shortness of breath) Priority: Primary Status: Acute Comments: improved with inhalers (4) Hypertension Priority: Secondary Status: Chronic Comments: controlled; followup outpatient. Qualifiers: Hypertension type: essential hypertension Qualified Code(s): I10 - Essential (primary) hypertension (5) Coronary artery disease Priority: Secondary Status: Chronic Qualifiers: Coronary Disease-Associated Artery/Lesion type: [place] artery [place] vs. transplanted heart: [place] heart Associated angina: with unstable angina Qualified Code(s): I25.110 - Atherosclerotic heart disease of [place] coronary artery with unstable angina pectoris (6) Rheumatoid arthritis Priority: Secondary Status: Chronic (7) DVT prophylaxis Priority: Primary Status: Acute Comments: Subcutaneous heparin while admitted (8) GERD (gastroesophageal reflux disease) Priority: Secondary Status: Chronic Comments: Denied current symptoms Qualifiers: Esophagitis presence: esophagitis presence not specified Qualified Code(s) : K21.9 - Gastro-esophageal reflux disease without esophagitis (9) Sleep apnea Priority: Secondary Status: Chronic Comments: Endorsed compliance with CPAP Qualifiers: Sleep apnea type: unspecified type Qualified Code(s): G47.30 - Sleep apnea , unspecified (10) PVCs (premature ventricular contractions) Priority: Secondary Status: Chronic Comments: followup outpatient. was noted on echo. (11) Bradycardia Priority: Primary Status: Acute Comments: improved with decreased BB dosage - Discharge Medications Prescriptions: Albuterol Sulfate [Albuterol Inhaler] 2 puff IH Q4H PRN #1 inh PRN Reason: Shortness Of Breath/Wheezing Budesonide/Formoterol 160/4.5 [Symbicort 160/4.5] 1 puff IH BIDR #1 Isosorbide MONOnitrate [Isosorbide Mononitrate ER] 120 mg PO DAILY #30 tab.er.24h Metoprolol XL (24 HR) Succ [Toprol Xl] 25 mg PO DAILY #30 Rosuvastatin [Crestor] 40 mg PO HS #30 tablet Home Medications: Dexlansoprazole [Dexilant] 60 mg PO DAILY 03/31/17 [History] Ezetimibe [Zetia] 10 mg PO DAILY 03/31/17 [History] Folic Acid 2 mg PO DAILY 03/31/17 [History] Hydroxychloroquine [Plaquenuil] 400 mg PO DAILY 03/31/17 [History] Methotrexate [Otrexup] 20 mg PO SAMPSON 03/31/17 [History] Nitroglycerin 0.4 mg PO Q5M PRN 03/31/17 [History] Olmesartan Medoxomil 40 mg PO DAILY 03/31/17 [History] Oxycodone HCl/Acetaminophen [Percocet 10-325 mg Tablet] 1 tab PO Q6H PRN [History] Zolpidem [Ambien] 10 mg PO HS PRN 03/31/17 [History] amLODIPine [Norvasc] 5 mg PO DAILY 03/31/17 [History] Aspirin Enteric Coated [Aspirin EC] 81 mg PO DAILY #0 04/02/17 [Rx] Clopidogrel [Plavix] 75 mg PO DAILY #30 tablet 04/02/17 [Rx] Escitalopram [Lexapro] 10 mg PO DAILY 05/01/17 [History] Albuterol Sulfate [Albuterol Inhaler] 2 puff IH Q4H PRN #1 inh 05/03/17 [Rx] Budesonide/Formoterol 160/4.5 [Symbicort 160/4.5] 1 puff IH BIDR #1 05/03/17 [ Rx] Isosorbide MONOnitrate [Isosorbide Mononitrate ER] 120 mg PO DAILY #30 tab.er.24h 05/03/17 [Rx] Metoprolol XL (24 HR) Succ [Toprol Xl] 25 mg PO DAILY #30 05/03/17 [Rx] Rosuvastatin [Crestor] 40 mg PO HS #30 tablet 05/03/17 [Rx] Allergies/Adverse Reactions: Allergies Penicillins [PCN] Allergy (Verified 04/09/17 16:06) Hives Date of admission: 05/01/17 15:00 Primary care physician: Sebastian Stockton, Consults: 05/01/17 14:28 Consult to Cardiology [CONS] Stat Comment: Consulting Provider: Tank Shahid Reason for Consult: Exertional chest pain Time Notified: 14:28 Call Completed: Yes Discharging clinician: Daniela Sauceda Anticipated date of discharge: 05/03/17 - Patient Status Disposition: Home, Self-Care Condition: Fair Functional capacity at discharge: independent ambulation Overall status at discharge: patient is back to baseline - Discharge Instructions Follow Up With: Sebastian Stockton MD [Primary Care Provider] - (Call Office to make a follow up appointment) [facility] [Provider Group] Forms: ED Satisfaction Letter Additional Instructions: Follow-up with primary care provider within one to 2 weeks, follow-up with cardiology within 3-4 weeks - Diet and Activity Activity: increase activity as tolerated Diet: low fat, low cholesterol, low salt diet Hospital course: Mr. Morales is a 66 year old male with past medical history of hypertension, hyperlipidemia, RA, NATHANIEL, CAD status post stent, former tobacco abuse stopped in 2006. Patient presented to the emergency department chief complaint of chest pain. 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 Patient described the pain as severe pressure in the center of his chest without radiation. Pain was somewhat relieved by rest and aspirin given in the emergency department. Patient denied headache, cough, fever, nausea or vomiting. Patient denied any diaphoresis. Patient did report having chest pain nearly every day and states that he takes a sublingual nitroglycerin daily. But he states the presenting episode was worse than his usual bouts. Patient had a left heart catheter in March which showed a 90% lesion of the PDA which was ballooned but was unable to be stented. Workup in the emergency department unremarkable. Chest x-ray negative. Neck CTA unremarkable. Patient was admitted to the hospitalist service for further evaluation and management. Troponins negative 3. Cardiology was brought on board who initially elected to proceed with medical management with an increase in his Imdur as well as addition of bronchodilators to his regimen. The patient was then observed overnight, and on day of discharge, his chest pain had subsided and his shortness of breath had resolved as well. Patient has not been formally diagnosed with asthma or COPD but his aeration improved greatly with Symbicort daily as well as albuterol as needed and he was sent home on these inhalers. He was bradycardic and his beta lissette was decreased and his bradycardia improved. Patient's symptoms improved with medical management so left heart catheter was not indicated during this visit. Patient was discharged home in stable condition with close outpatient follow-up recommended with primary care provider and cardiology. The following changes were made in his medications: * He was documented as being on rosuvastatin 40 mg at bedtime but his prescription was for 20, increase to 40 at this time * Imdur increased from 30 mg daily to 120 mg daily * Toprol-XL decreased from 50 mg daily down to 25 mg daily * Symbicort and albuterol inhalers were added to his regimen ITS Impressions Chest X-Ray 05/01/17 11:02 IMPRESSION: No acute cardiopulmonary disease D/ / Gaston Adams MD / Gaston Adams MD Interpreting Provider: Gaston Adams MD Neck CTA 05/01/17 11:15 IMPRESSION: No acute intracranial hemorrhage or mass effect. Unremarkable CTA of the head and neck. D/ / Boris Hess MD / Boris Hess MD Interpreting Provider: Boris Hess MD Angiography CT 05/01/17 11:16 IMPRESSION: No acute intracranial hemorrhage or mass effect. Unremarkable CTA of the head and neck. D/ / Boris Hess MD / Boris Hess MD Interpreting Provider: Boris Hess MD - Time Spent with Patient Total time spent providing and/or coordinating discharge services: - Constitutional Vitals: Temp Pulse Resp BP Pulse Ox 98.1 F 55 16 149/77 96 05/03/17 07:43 05/03/17 07:43 05/03/17 08:25 05/03/17 07:43 05/03/17 08:25 General appearance: Present: A&O X 3, pleasant, no acute distress, answers questions appropriately - Head Head exam: Present: atraumatic, normocephalic - Eye Eye exam: Present: PERRL, conjuntiva pink, sclera anicteric Pupils: Present: PERRL - Neck Neck exam general surgery: Present: supple, trachea midline. Absent: lymphadenopathy - Respiratory Respiratory exam: Present: CTAB (improved ). Absent: accessory muscle use, rales, respiratory distress, rhonchi, wheezes - Cardiovascular Cardiovascular exam: Present: RRR, +S1, +S2. Absent: diastolic murmur, gallop, rubs, systolic murmur - GI/Abdominal GI/Abdominal exam: Present: normal bowel sounds, soft, no peritoneal signs. Absent: distended, tenderness - Extremities Exam Extremities exam: Present: warm, radial pulses palpable and symetrical. Absent : calf tenderness, cyanotic, pedal edema - Neurological Exam Neurological exam: Present: alert, CN II-XII intact, normal gait, oriented X3, no focal deficits, strengths equal and symetr throughout. Absent: pronater drift, facial droop, speech deficit - Skin Skin exam: Present: dry, intact, normal color, warm
--- NOTE | 2017-05-04 06:14 | Electrocardiograph Report ---
[facility] Test Date: 2017-05-01 Pat Name: Kiran Morales Department: 103 Room: 3B37 Gender: M Surgical Resident: [facility] : 1950 Requested By: Brendan Killian Order Number: [id number] Reading MD: George Wiley DO Measurements Intervals [place] Rate: 51 P: 9 [place]: 155 QRS: 5 QRSD: 96 T: 30 QT: 478 QTc: 454 Interpretive Statements SINUS BRADYCARDIA Electronically Signed On 05-04-2017 6:12:38 EDT by George Wiley DO
== END 2017-05-03 11:50 | disposition home or self-care (01) ==
LOC: 3BNU 11:01 → EMEROO 11:01 → 3BNU 15:19
PROVIDERS: ADMIT Family Medicine; ATTEND Nurse Practitioner Family